=== PATIENT | female | born 1970 | race Caucasian/White ===

== ENCOUNTER 2018-05-16 09:53 | Inpatient (IN) | payer OTHER ==
[2018-05-16 10:22] VITALS: BMI 31.6
--- NOTE | 2018-05-16 10:27 | HP ---
CIWA Score Nausea/Vomitin Muscle Tremors: 2 Anxiety: 2 Agitation: 2 Paroxysmal Sweats: 1-Minimal Palms Moist Orientation: 0-Oriented Tacttile Disturbances: 1-Very Mild Itch/Numbness Auditory Disturbances: 1-Very Mild Visual Disturbances: 0-None Headache: 2-Mild CIWA-Ar Total Score: 13 - Admission Criteria OASAS Guidelines: Admission for Medically Managed Detox: Requires at least one of the followin. CIWA greater than 12 2. Seizures within the past 24 hours 3. Delirium tremens within the past 24 hours 4. Hallucinations within the past 24 hours 5. Acute intervention needed for co occurring medical disorder 6. Acute intervention needed for co occurring psychiatric disorder 7. Severe withdrawal that cannot be handled at a lower level of care (continued vomiting, continued diarrhea, abnormal vital signs) requiring intravenous medication and/or fluids 8. Patient presents the following: CIWA greater than 12 Admission Criteria Met: Admission criteria met Admission ROS [facility] - HPI Chief Complaint: i need help to stop using xanax and cocaine Allergies/Adverse Reactions: Allergies Allergy/AdvReac Type Severity Reaction Status Date / Time No Known Drug Allergies Allergy Verified 05/16/18 10:12 History of Present Illness: this 47 years old female with xanax and cocaine dependence,seeking detox, withdrawal symptom,multiple admissions in the past, last detox 02/08/15 to 02/12/15 but keep relapsing history of asthma ,anemia mmtp 100 mgs/day ,last medicated today low back pain hypercholesterolemia,no medication longest period of sobriety 11 months Exam Limitations: No Limitations - Ebola screening Have you traveled outside of the country in the last 21 days: No Have you had contact with anyone from an Ebola affected area: No - Review of Systems Constitutional: Loss of Appetite, Malaise, Night Sweats, Changes in sleep, Weakness, Unintentional Wgt. Loss EENT: reports: Nose Congestion Respiratory: reports: No Symptoms reported, Other (history of asthma) Cardiac: reports: No Symptoms Reported GI: reports: Nausea, Poor Appetite, Abdominal cramping : reports: No Symptoms Reported Musculoskeletal: reports: Back Pain, Joint Pain, Muscle Pain Integumentary: reports: Dryness Neuro: reports: Headache, Tremors Endocrine: reports: No Symptoms Reported Hematology: reports: No Symptoms Reported, See HPI, Anemia Psychiatric: reports: No Sypmtoms Reported, Judgement Intact, Mood/Affect Appropiate, Orientated x3, Depressed Other Systems: Reviewed and Negative Patient History - Patient Medical History Hx Anemia: Yes (ON IRON SUPPLEMENT) Hx Asthma: Yes (ON ALBUTEROL INHALER) Hx Chronic Obstructive Pulmonary Disease (COPD): No Hx Cancer: No Hx Cardiac Disorders: No Hx Congestive Heart Failure: No Hx Hypertension: No Hx Hypercholesterolemia: No Hx Pacemaker: No HX Cerebrovascular Accident: No Hx Seizures: Yes (WITHDRAWAL SEIZURE in 2014) Hx Dementia: No Hx Diabetes: No Hx Gastrointestinal Disorders: No Hx Liver Disease: No Hx Genitourinary Disorders: No Hx Sexually Transmitted Disorders: No Hx Renal Disease (ESRD): No Hx Thyroid Disease: No Hx Human Immunodeficiency Virus (HIV): No (last 11/03) Hx Hepatitis C: No Hx Depression: Yes (anxiety and depression) Hx Suicide Attempt: No Hx Bipolar Disorder: No Hx Schizophrenia: No Other Medical History: no suicidal,no homicidal - Patient Surgical History Past Surgical History: Yes Hx Neurologic Surgery: No Hx Cataract Extraction: No Hx Cardiac Surgery: No Hx Lung Surgery: No Hx Breast Surgery: No Hx Breast Biopsy: No Hx Abdominal Surgery: No Hx Appendectomy: No Hx Cholecystectomy: No Hx Genitourinary Surgery: No Hx Section: No Hx Orthopedic Surgery: Yes (LOWER BACK LASER SX IN 1989) Other Surgical History: tubial ligation in 1995 Anesthesia Reaction: No - PPD History Previous Implant?: Yes Documented Results: Negative w/o proof Date: 06/24/14 Results: 0MM PPD to be Administered?: Yes - Reproductive History Patient is a Female of Child Bearing Age (11 -55 yrs old): Yes Last Menstrual Period: 05/02/18 Patient : No - Smoking Cessation Smoking history: Never smoked Have you smoked in the past 12 months: No Aproximately how many cigarettes per day: 0 Cigars Per Day: 0 Hx Chewing Tobacco Use: No - Substance & Tx. History Hx Alcohol Use: No Hx Substance Use: Yes Substance Use Type: Cocaine, Tranquilizers Hx Substance Use Treatment: Yes ([facility] ) - Substances Abused Alprazolam (Xanax) Route: Oral Frequency: Daily Amount used: 16-20mg Age of first use: 29 Date of Last Use: 05/16/18 Cocaine Route: Inhalation Frequency: 1-2 times per week Amount used: $20 Age of first use: 17 Date of Last Use: 05/15/18 Family Disease History - Family Disease History Family Disease History: Other: Father (DRUG, OF AN OD), Mother (DRUG, cerebral aneurysm) Admission Physical Exam [facility] - Vital Signs Vital Signs: Vital Signs Temperature 97.6 F 05/16/18 10:20 Pulse Rate 62 05/16/18 10:20 Respiratory Rate 17 05/16/18 10:20 Blood Pressure 109/63 05/16/18 10:20 O2 Sat by Pulse Oximetry (%) - Physical General Appearance: Yes: Moderate Distress, Tremorous, Irritable, Sweating, Anxious HEENTM: Yes: Normal ENT Inspection, [place], Pharynx Normal Respiratory: Yes: Lungs Clear, Normal Breath Sounds, No Respiratory Distress, Other (history of asthma) Neck: Yes: Within Normal Limits, Supple, Trachea in good position Breast: Yes: Breast Exam Deferred Cardiology: Yes: Within Normal Limits, Regular Rhythm, Regular Rate, S1, S2 Abdominal: Yes: Within Normal Limits, Normal Bowel Sounds, Non Tender, Flat, Soft Genitourinary: Yes: Within Normal Limits Back: Yes: Muscle Spasm Musculoskeletal: Yes: Back pain, Muscle Pain Extremities: Yes: Within Normal Limits, Normal Range of Motion, Tremors Neurological: Yes: 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 intact, Fully Oriented, Alert, Motor Strength 5/5 Integumentary: Yes: Dry Lymphatic: Yes: Within Normal Limits - Diagnostic (1) Uncomplicated sedative, hypnotic or anxiolytic withdrawal Current Visit: No Status: Acute (2) Anemia Current Visit: No Status: Chronic (3) Asthma Current Visit: No Status: Chronic (4) Cocaine dependence Current Visit: No Status: Chronic (5) Methadone maintenance therapy patient Current Visit: No Status: Chronic (6) Opioid dependence on agonist therapy Current Visit: No Status: Chronic (7) Seizure Current Visit: No Status: Chronic Cleared for Admission S - Detox or Rehab [facility] Level of Care: Medically Managed Detox Regimen/Protocol: Valium S Breath Alcohol Content Breath Alcohol Content: 0 Inpatient Rehab Admission - Rehab Decision to Admit Inpatient rehab admission?: No
[2018-05-16] MEDS ORDERED: ACETAMINOPHEN 325 MG TABLET (FP) PO PRN (10:38)
[2018-05-16] MEDS ORDERED: MENTHOL/PHENOL 1 EACH UD MM PRN (10:38)
[2018-05-16] MEDS ORDERED: guaiFENesin/D-METHORPHAN HB 10 ML UNIT-DOSE CUPS PO PRN (10:38)
[2018-05-16] MEDS ORDERED: LOPERAMIDE HCL 2 MG CAPSULE PO PRN (10:38)
[2018-05-16] MEDS ORDERED: MAGNESIUM HYDROX 2400MG/30ML ORAL SUSPENSION 30 ML CUP PO PRN (10:38)
[2018-05-16] MEDS ORDERED: MAGNESIUM CITRATE 300 ML BOTTLE PO PRN (10:38)
[2018-05-16] MEDS ORDERED: MAG HYDROX/AL HYDROX/SIMETH 30 ML UNIT-DOSE CUP PO PRN (10:38)
[2018-05-16] MEDS ORDERED: P-EPHED 60MG/TRIPROLIDI 2.5MG TABLET PO PRN (10:38)
[2018-05-16] MEDS ORDERED: hydrOXYzine PAMOATE 25 MG CAPSULE (FP) PO PRN (10:38)
[2018-05-16] MEDS ORDERED: ALBUTEROL SO4 8 GM HFA INHALER IH PRN (10:41)
[2018-05-16] MEDS: FERROUS SO4 325 MG TABLET (FP) PO SCH ×2 (13:15→22:37)
[2018-05-16] MEDS: diazePAM 5 MG TABLET PO SCH ×2 (13:15→22:37)
[2018-05-16] MEDS: THIAMINE HCL 100 MG TABLET (FP) PO SCH (22:37)
[2018-05-16] MEDS: MELATONIN 5 MG TABLETS PO PRN (22:37)
[2018-05-17] MEDS ORDERED: METHADONE HCL 40 MG DISPERSABLE TABLET ONE (04:29)
[2018-05-17] MEDS ORDERED: METHADONE HCL 10 MG TABLET ONE (04:29)
[2018-05-17] MEDS: METHADONE 80 MG, METHADONE 20 MG PO SCH (05:33)
[2018-05-17] MEDS: FERROUS SO4 325 MG TABLET (FP) PO SCH ×3 (05:34→22:12)
[2018-05-17] MEDS: diazePAM 5 MG TABLET PO SCH ×3 (05:34→22:12)
[2018-05-17] MEDS ORDERED: METHADONE HCL 10 MG TABLET PO SCH (06:00)
[2018-05-17] MEDS: PRENATAL VITAMINS W/ FOLIC ACID TABLET (FP) PO SCH (10:47)
[2018-05-17 10:50] LABS: HEMATOCRIT 35.9 % (32.4-45.2); HEMOGLOBIN 11.9 GM/dL (10.7-15.3); MCH 29.4 pg (25.7-33.7); MEAN PLT VOLUME 10.1 fl (7.5-11.1); PLATELET COUNT 247 K/MM3 (134-434); RBC 4.04 M/mm3 (3.60-5.2); RDW 20.3 % (11.6-15.6); WHITE BLOOD COUNT 4.7 K/mm3 (4.0-10.0)
[2018-05-17 11:00] LABS: ALBUMIN 3.3 g/dl (3.4-5.0); ALK PHOS 62 U/L (45-117); ANION GAP 5 MMOL/L (8-16); BILIRUBIN,TOTAL 0.4 mg/dL (0.2-1); BLOOD UREA NITROGEN 10 mg/dL (7-18); CALCIUM 8.4 mg/dL (8.5-10.1); CHLORIDE 105 mmol/L (98-107); CO2 26 mmol/L (21-32); CREATININE 0.9 mg/dL (0.55-1.3); GLUCOSE,RANDOM 102 mg/dL (74-106); POTASSIUM 4.4 mmol/L (3.5-5.1); SGOT/AST 10 U/L (15-37); SGPT/ALT 16 U/L (13-61); SODIUM 136 mmol/L (136-145); TOT PROT 6.3 g/dl (6.4-8.2)
--- NOTE | 2018-05-17 12:02 | PN ---
S CIWA - CIWA Score Nausea/Vomitin-No Nausea/No Vomiting Muscle Tremors: 3 Anxiety: 3 Agitation: 3 Paroxysmal Sweats: 3 Orientation: 0-Oriented Tacttile Disturbances: 0-None Auditory Disturbances: 0-None Visual Disturbances: 0-None Headache: 0-None Present CIWA-Ar Total Score: 12 S Progress Note (SOAP) Subjective: sweats shakes interrupted sleep body aches Objective: 05/17/18 12:01 Vital Signs Temperature 99.1 F 05/17/18 09:31 Pulse Rate 73 05/17/18 09:31 Respiratory Rate 18 05/17/18 09:31 Blood Pressure 107/73 05/17/18 09:31 O2 Sat by Pulse Oximetry (%) Laboratory Tests 05/17/18 05/17/18 06:30 06:30 WBC 4.7 RBC 4.04 Hgb 11.9 Hct 35.9 MCV 89.0 MCH 29.4 D MCHC 33.0 RDW 20.3 H Plt Count 247 D MPV 10.1 Sodium 136 Potassium 4.4 Chloride 105 Carbon Dioxide 26 Anion Gap 5 L BUN 10 Creatinine 0.9 Creat Clearance w eGFR > 60 Random Glucose 102 Calcium 8.4 L Total Bilirubin 0.4 AST 10 L ALT 16 Alkaline Phosphatase 62 Total Protein 6.3 L Albumin 3.3 L aaox3 ambulating no acute distress Assessment: 05/17/18 12:02 withdrawal sx Plan: continue detox increase fluids
[2018-05-17] MEDS: IBUPROFEN 400 MG TABLET (FP) PO PRN (19:12)
[2018-05-17] MEDS: THIAMINE HCL 100 MG TABLET (FP) PO SCH (22:12)
[2018-05-18] MEDS ORDERED: TRIMETHOBENZAMIDE HCL 200MG/2ML INJ IM ONE (01:27)
--- NOTE | 2018-05-18 01:34 | PN ---
[facility] Progress Note Note: As per Nurse Ms. Anup Ramirez, patient complained of nausea and vomiting Vital Signs Temperature 98.2 F 05/17/18 17:27 Pulse Rate 60 05/17/18 17:27 Respiratory Rate 18 05/18/18 00:30 Blood Pressure 111/67 05/17/18 17:27 O2 Sat by Pulse Oximetry (%) Action: Tigan 200mg intramuscular ordered
[2018-05-18] MEDS ORDERED: METHADONE HCL 10 MG TABLET ONE (04:53)
[2018-05-18] MEDS ORDERED: METHADONE HCL 40 MG DISPERSABLE TABLET ONE (04:53)
[2018-05-18] MEDS: METHADONE 80 MG, METHADONE 20 MG PO SCH (06:28)
[2018-05-18] MEDS: FERROUS SO4 325 MG TABLET (FP) PO SCH ×3 (06:30→22:09)
[2018-05-18] MEDS ORDERED: diazePAM 5 MG TABLET PO ONE (10:00)
[2018-05-18] MEDS: PRENATAL VITAMINS W/ FOLIC ACID TABLET (FP) PO SCH (10:08)
[2018-05-18] MEDS: diazePAM 5 MG TABLET PO SCH ×2 (10:08→22:09)
[2018-05-18] MEDS: diazePAM 5 MG TABLET PO PRN (14:01)
--- NOTE | 2018-05-18 15:30 | PN ---
S CIWA - CIWA Score Nausea/Vomitin Muscle Tremors: 3 Anxiety: 3 Agitation: 2 Paroxysmal Sweats: 3 Orientation: 0-Oriented Tacttile Disturbances: 0-None Auditory Disturbances: 0-None Visual Disturbances: 0-None Headache: 0-None Present CIWA-Ar Total Score: 13 [facility] Progress Note (SOAP) Subjective: tired nausea shakes Objective: 05/18/18 15:29 A & O x 3, In bed, skin flushed Vital Signs Temperature 100.4 F H 05/18/18 14:00 Pulse Rate 70 05/18/18 14:00 Respiratory Rate 16 05/18/18 14:00 Blood Pressure 128/70 05/18/18 14:00 O2 Sat by Pulse Oximetry (%) T- 100.4F Assessment: 05/18/18 15:30 withdrawal sx fever - maybe as withdrawal sx Plan: continue detox Tylenol for fever continue increase hydration UA ordered
[2018-05-18] MEDS: IBUPROFEN 400 MG TABLET (FP) PO PRN (18:53)
[2018-05-18] MEDS: THIAMINE HCL 100 MG TABLET (FP) PO SCH (22:09)
[2018-05-18] MEDS: MELATONIN 5 MG TABLETS PO PRN (22:09)
[2018-05-19] MEDS ORDERED: METHADONE HCL 40 MG DISPERSABLE TABLET ONE (04:38)
[2018-05-19] MEDS ORDERED: METHADONE HCL 10 MG TABLET ONE (04:39)
[2018-05-19] MEDS: METHADONE 80 MG, METHADONE 20 MG PO SCH (05:31)
[2018-05-19] MEDS: FERROUS SO4 325 MG TABLET (FP) PO SCH ×3 (05:32→22:00)
[2018-05-19] MEDS: diazePAM 5 MG TABLET PO PRN (07:46)
[2018-05-19] MEDS: PRENATAL VITAMINS W/ FOLIC ACID TABLET (FP) PO SCH (09:20)
[2018-05-19] MEDS: diazePAM 5 MG TABLET PO SCH ×2 (09:20→22:00)
[2018-05-19] MEDS: IBUPROFEN 400 MG TABLET (FP) PO PRN (14:16)
--- NOTE | 2018-05-19 15:40 | PN ---
[facility] Progress Note (SOAP) Subjective: Sweating, chills Objective: 05/19/18 15:39 Last Vital Signs Temp Pulse Resp BP Pulse Ox 98.1 F 84 18 115/66 05/19/18 10:00 05/19/18 10:00 05/19/18 10:00 05/19/18 10:00 Laboratory Tests 05/16/18 05/17/18 05/17/18 12:00 06:30 06:30 WBC 4.7 RBC 4.04 Hgb 11.9 Hct 35.9 MCV 89.0 MCH 29.4 D MCHC 33.0 RDW 20.3 H Plt Count 247 D MPV 10.1 Sodium 136 Potassium 4.4 Chloride 105 Carbon Dioxide 26 Anion Gap 5 L BUN 10 Creatinine 0.9 Creat Clearance w eGFR > 60 Random Glucose 102 Calcium 8.4 L Total Bilirubin 0.4 AST 10 L ALT 16 Alkaline Phosphatase 62 Total Protein 6.3 L Albumin 3.3 L Urine Color Cancelled Urine Appearance Cancelled Urine pH Cancelled Ur Specific [place] Cancelled Urine Protein Cancelled Urine Glucose (UA) Cancelled Urine Ketones Cancelled Urine Blood Cancelled Urine Nitrite Cancelled Urine Bilirubin Cancelled Urine Urobilinogen Cancelled Ur Leukocyte Esterase Cancelled RPR Titer 05/17/18 06:30 WBC RBC Hgb Hct MCV MCH MCHC RDW Plt Count MPV Sodium Potassium Chloride Carbon Dioxide Anion Gap BUN Creatinine Creat Clearance w eGFR Random Glucose Calcium Total Bilirubin AST ALT Alkaline Phosphatase Total Protein Albumin Urine Color Urine Appearance Urine pH Ur Specific [place] Urine Protein Urine Glucose (UA) Urine Ketones Urine Blood Urine Nitrite Urine Bilirubin Urine Urobilinogen Ur Leukocyte Esterase RPR Titer Nonreactive Labs reviewed Assessment: 05/19/18 15:39 Withdrawal symptoms Plan: Continue detox Encouraged PO water hydration
[2018-05-19] MEDS: MELATONIN 5 MG TABLETS PO PRN (22:00)
[2018-05-19] MEDS: THIAMINE HCL 100 MG TABLET (FP) PO SCH (22:00)
[2018-05-20] MEDS ORDERED: METHADONE HCL 40 MG DISPERSABLE TABLET ONE (02:47)
[2018-05-20] MEDS ORDERED: METHADONE HCL 10 MG TABLET ONE (02:48)
[2018-05-20] MEDS: METHADONE 80 MG, METHADONE 20 MG PO SCH (05:48)
[2018-05-20] MEDS: FERROUS SO4 325 MG TABLET (FP) PO SCH (05:49)
[2018-05-20] MEDS: PRENATAL VITAMINS W/ FOLIC ACID TABLET (FP) PO SCH (09:25)
[2018-05-20] MEDS: IBUPROFEN 400 MG TABLET (FP) PO PRN (09:25)
[2018-05-20 09:34] VITALS: BP 103/65; PULSE 85; TEMP 99.1
--- NOTE | 2018-05-20 09:36 | DS ---
[facility] Detox Discharge Summary Admission Date: 05/16/18 Discharge Date: 05/20/18 - History Present History: Alcohol Dependence, Cocaine Dependence, Opioid Dependence, Sedative Dependence - Physical Exam Results Vital Signs: Vital Signs Temperature 99.7 F H 05/20/18 06:54 Pulse Rate 77 05/20/18 06:54 Respiratory Rate 18 05/20/18 06:54 Blood Pressure 109/61 05/20/18 06:54 O2 Sat by Pulse Oximetry (%) - Treatment Hospital Course: Detox Protocol Followed, Detoxed Safely, Responded well, Discharged Condition Good, Rehab Referral Accepted - Medication Discharge Medications: Ambulatory Orders Albuterol Sulfate Inhaler - [Ventolin HFA Inhaler -] 2 inh PO Q4H PRN #1 inh Ferrous Sulfate [Feosol] 325 mg PO TID #90 ud 11/03/14 - Diagnosis (1) Uncomplicated sedative, hypnotic or anxiolytic withdrawal Current Visit: Yes Status: Chronic (2) Alcohol dependence with uncomplicated withdrawal Current Visit: Yes Status: Chronic (3) Anemia Current Visit: Yes Status: Chronic Qualifiers: Anemia type: unspecified type Qualified Code(s): D64.9 - Anemia, unspecified (4) Anxiety and depression Current Visit: No Status: Chronic (5) Asthma Current Visit: Yes Status: Chronic Qualifiers: Asthma severity: mild Asthma complication type: unspecified (6) Cocaine dependence Current Visit: Yes Status: Chronic Qualifiers: Substance use status: uncomplicated Qualified Code(s): F14.20 - Cocaine dependence, uncomplicated (7) MDD (major depressive disorder) Current Visit: No Status: Chronic - AMA Did Patient Leave Against Medical Advice: No (referred to [facility])
[2018-05-20] MEDS ORDERED: diazePAM 5 MG TABLET PO ONE (10:00)
== END 2018-05-20 12:16 | disposition other institution (70) | DRG 773 ==
LOC: YASAS 09:53 → Y6N 10:42
PROVIDERS: ADMIT Surgery; ATTEND Surgery
PROC: HZ2ZZZZ Detoxification Services for Substance Abuse Treatment (ICD-10-PCS; principal; 2018-05-16)
DX: F10.230 Alcohol dependence with withdrawal, uncomplicated (principal); F13.230 Sedative, hypnotic or anxiolytic dependence with withdrawal, uncomplicated; F14.20 Cocaine dependence, uncomplicated; F11.20 Opioid dependence, uncomplicated; F33.9 Major depressive disorder, recurrent, unspecified; F41.8 Other specified anxiety disorders; D64.9 Anemia, unspecified; J45.909 Unspecified asthma, uncomplicated; M54.5 Low back pain; E78.00 Pure hypercholesterolemia, unspecified; Z86.69 Personal history of other diseases of the nervous system and sense organs
CPT/HCPCS: 36415; 80053; 81003; 85027; 86593

== ENCOUNTER 2018-05-20 12:13 | Inpatient (IN) | payer OTHER ==
[2018-05-20 13:04] VITALS: BMI 30.8
[2018-05-20] MEDS ORDERED: MAGNESIUM HYDROX 2400MG/30ML ORAL SUSPENSION 30 ML CUP PO PRN (14:12)
[2018-05-20] MEDS ORDERED: MENTHOL/PHENOL 1 EACH UD MM PRN (14:12)
[2018-05-20] MEDS ORDERED: LOPERAMIDE HCL 2 MG CAPSULE PO PRN (14:12)
[2018-05-20] MEDS ORDERED: MAG HYDROX/AL HYDROX/SIMETH 30 ML UNIT-DOSE CUP PO PRN (14:12)
[2018-05-20] MEDS ORDERED: NICOTINE POLACRILEX 4 MG GUM BUC PRN (14:12)
[2018-05-20] MEDS ORDERED: P-EPHED 60MG/TRIPROLIDI 2.5MG TABLET PO PRN (14:12)
[2018-05-20] MEDS ORDERED: guaiFENesin/D-METHORPHAN HB 10 ML UNIT-DOSE CUPS PO PRN (14:12)
--- NOTE | 2018-05-20 14:12 | HP ---
[facility] Rehab Assess/Revision - Admission History Admitted to Rehab from: [facility] [address] [place] - Vital signs Vital Signs: Vital Signs Period Temp Pulse Resp BP Sys/Light Pulse Ox Last 24 Hr 97.8 F-97.8 F 80-80 18-18 126-126/77-77 - Findings Detox History & Physical reviewed: Yes Concur with findings: Yes Inpatient Rehab Admission - Rehab Decision to Admit Inpatient rehab admission?: Yes - Initial Determination Are CD services needed?: Yes Free of communicable disease: Yes Not in need of hospitalization: Yes - Rehab Admission Criteria Previous failed treatment: Yes Poor recovery environment: Yes Comorbidities: Yes Lacks judgement: Yes Patient is meeting Inpatient Rehab admission criteria:: Yes
[2018-05-20] MEDS ORDERED: ALBUTEROL SO4 8 GM HFA INHALER IH PRN (14:13)
[2018-05-20] MEDS: FERROUS SO4 325 MG TABLET (FP) PO SCH (17:45)
[2018-05-20] MEDS: THIAMINE HCL 100 MG TABLET (FP) PO SCH (21:37)
[2018-05-21] MEDS ORDERED: METHADONE HCL 10 MG TABLET ONE (05:51)
[2018-05-21] MEDS ORDERED: METHADONE HCL 40 MG DISPERSABLE TABLET ONE (05:51)
[2018-05-21] MEDS ORDERED: METHADONE HCL 10 MG TABLET PO SCH (06:00)
[2018-05-21] MEDS: METHADONE 80 MG, METHADONE 20 MG PO SCH (06:20)
[2018-05-21] MEDS: FERROUS SO4 325 MG TABLET (FP) PO SCH ×3 (07:21→17:45)
[2018-05-21] MEDS ORDERED: NICOTINE 21 MG/24 HOURS TOPICAL PATCH TD SCH (10:00)
[2018-05-21] MEDS: PRENATAL VITAMINS W/ FOLIC ACID TABLET (FP) PO SCH (10:06)
[2018-05-21] MEDS: MAGNESIUM CITRATE 300 ML BOTTLE PO PRN (10:07)
[2018-05-21] MEDS: IBUPROFEN 400 MG TABLET (FP) PO PRN ×2 (10:11→17:46)
--- NOTE | 2018-05-21 12:43 | PN ---
[facility] Progress Note (SOAP) Subjective: c/o of constipation for 1 week. Also vomited 2 days ago. Also c/o pain right lower side; on methadone. Unclear as to whether or not the patient has taken imodium. Has taken 1 dose of citrus of magnesia, 2nd dose is due. Objective: 05/21/18 12:39 abdomen rounded, non-tender to palpation, soft, positive bowel sounds all 4 quadrant. Able to eat. afebrile Vital Signs - 24 hr 05/20/18 05/21/18 05/21/18 13:03 00:30 03:30 Temperature 97.8 F Pulse Rate 80 Respiratory 18 18 18 Rate Blood Pressure 126/77 05/21/18 06:52 Temperature 97.8 F Pulse Rate 80 Respiratory 16 Rate Blood Pressure 114/72 05/21/18 12:43 05/21/18 12:46 Assessment: 05/21/18 12:44 constipation Plan: Encourage fluids. increase ambulation, ordered colace. Advised patient to take second dose of citrate of magnesia. Imodium discontinued.
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
[2018-05-21] MEDS: THIAMINE HCL 100 MG TABLET (FP) PO SCH (22:10)
[2018-05-21] MEDS: MELATONIN 5 MG TABLETS PO PRN (22:10)
[2018-05-21] MEDS: DOCUSATE SODIUM 100 MG CAPSULE (FP) PO SCH (22:10)
[2018-05-21] MEDS: hydrOXYzine PAMOATE 50 MG CAPSULE (FP) PO PRN (22:10)
[2018-05-22] MEDS ORDERED: METHADONE HCL 10 MG TABLET ONE (05:19)
[2018-05-22] MEDS ORDERED: METHADONE HCL 40 MG DISPERSABLE TABLET ONE (05:19)
[2018-05-22] MEDS: METHADONE 80 MG, METHADONE 20 MG PO SCH (06:46)
[2018-05-22] MEDS: FERROUS SO4 325 MG TABLET (FP) PO SCH ×3 (09:00→17:35)
[2018-05-22] MEDS: IBUPROFEN 400 MG TABLET (FP) PO PRN ×2 (10:03→15:42)
[2018-05-22] MEDS: PRENATAL VITAMINS W/ FOLIC ACID TABLET (FP) PO SCH (10:03)
[2018-05-22] MEDS ORDERED: PT OWN MED DRAWER 7, Y5N ONE (10:31)
[2018-05-22] MEDS: THIAMINE HCL 100 MG TABLET (FP) PO SCH (21:19)
[2018-05-22] MEDS: DOCUSATE SODIUM 100 MG CAPSULE (FP) PO SCH (21:20)
[2018-05-22] MEDS: MELATONIN 5 MG TABLETS PO PRN (21:21)
[2018-05-23] MEDS ORDERED: METHADONE HCL 10 MG TABLET ONE (02:39)
[2018-05-23] MEDS ORDERED: METHADONE HCL 40 MG DISPERSABLE TABLET ONE (02:40)
[2018-05-23] MEDS: ACETAMINOPHEN 325 MG TABLET (FP) PO PRN (06:34)
[2018-05-23] MEDS: METHADONE 80 MG, METHADONE 20 MG PO SCH (06:35)
[2018-05-23] MEDS: PRENATAL VITAMINS W/ FOLIC ACID TABLET (FP) PO SCH (10:16)
[2018-05-23] MEDS: FERROUS SO4 325 MG TABLET (FP) PO SCH (10:16)
[2018-05-23] MEDS: IBUPROFEN 400 MG TABLET (FP) PO PRN ×2 (10:17→18:48)
--- NOTE | 2018-05-23 10:37 | PN ---
[facility] Progress Note (SOAP) Subjective: Patient c/o right lower quadrant pain. Had previous c/o pain 2 days ago, also reporting constipation at that time. Was given citrus of magnesia and started on colace. Stated she had 1 loose bowel movement after the magnesia that was greenish in color. Reports she is able to ate, but appetite is decreased. Had a temperature of 100.1 at 7am, temperature at 9:10 AM as 98.5. Denies nausea and vomiting. Objective: 05/23/18 10:35 Abdomen soft, non-tender, non-distended, no pain on palpation. Positive bowel sounds in all 4 quadrants. Skin color consistent, no areas of eccyhmosis or rashes. 05/23/18 12:38 Vital Signs Period Temp Pulse Resp BP Sys/Light Pulse Ox Last 24 Hr 97.8 F-100.1 F 58-132 - 101-112/57-81 Last Vital Signs Temp Pulse Resp BP Pulse Ox 97.8 F 58 L 18 101/66 05/23/18 12:00 05/23/18 12:00 05/23/18 12:00 05/23/18 12:00 Assessment: 05/23/18 10:36 unspecified Abdominal pain Plan: Continue to monitor. Requested that nurses take vital signs again at 12 noon and 2pm. Hgb/Hct are normal. Ferrous sulfate discontinued.
[2018-05-23] MEDS: THIAMINE HCL 100 MG TABLET (FP) PO SCH (21:18)
[2018-05-23] MEDS: MELATONIN 5 MG TABLETS PO PRN (21:18)
[2018-05-23] MEDS: DOCUSATE SODIUM 100 MG CAPSULE (FP) PO SCH (21:18)
[2018-05-24] MEDS ORDERED: METHADONE HCL 10 MG TABLET ONE (05:49)
[2018-05-24] MEDS ORDERED: METHADONE HCL 40 MG DISPERSABLE TABLET ONE (05:49)
[2018-05-24] MEDS: METHADONE 80 MG, METHADONE 20 MG PO SCH (06:35)
--- NOTE | 2018-05-24 07:28 | PN ---
[facility] Progress Note Note: Patient complained abdominal pain radiating to the flank area. Temperature 101.7F. Vital Signs Temperature 101.7 F H 05/24/18 07:00 Pulse Rate 96 H 05/24/18 07:00 Respiratory Rate 18 05/24/18 07:00 Blood Pressure 109/71 05/24/18 07:00 O2 Sat by Pulse Oximetry (%) Action: Urinalysis ordered CBC ordered Tylenol 325mg tablet 2 tablet oral after blood is drawn
[2018-05-24] MEDS: PRENATAL VITAMINS W/ FOLIC ACID TABLET (FP) PO SCH (09:08)
[2018-05-24 10:46] LABS: URINE APPEARANCE CLEAR; URINE BILIRUBIN NEGATIVE (<2.0 mg/dL); URINE COLOR YELLOW; URINE GLUCOSE (UA) NEGATIVE (NEGATIVE); URINE KETONE NEGATIVE (NEGATIVE); URINE LEUK ESTERASE TRACE (NEGATIVE); URINE NITRITE NEGATIVE (NEGATIVE); URINE PROTEIN NEGATIVE (NEGATIVE); URINE UROBILINOGEN NEGATIVE mg/dL (0.2-1.0)
[2018-05-24 11:00] LABS: HEMATOCRIT 34.1 % (32.4-45.2); HEMOGLOBIN 11.9 GM/dL (10.7-15.3); MCH 31.2 pg (25.7-33.7); MCHC 34.9 g/dl (32.0-36.0); MEAN CELL VOLUME 89.4 fl (80-96); MEAN PLT VOLUME 9.2 fl (7.5-11.1); PLATELET COUNT 326 K/MM3 (134-434); RBC 3.82 M/mm3 (3.60-5.2); RDW 17.1 % (11.6-15.6); WHITE BLOOD COUNT 11.9 K/mm3 (4.0-10.0)
[2018-05-24 11:04] LABS: EPI CELLS RARE /HPF (FEW)
--- NOTE | 2018-05-24 12:51 | PN ---
[facility] Progress Note Note: 47 Y/O FEMALE PATIENT IN REHAB C/O FEVER OF 24 - 48 HRS WITH RLQ ABDOMINAL RADIATING TO THE BACK. REPORTS IT COMES AND GOES AND NOW LOCATED ON THE EPIGASTRIC AREA. PT DENIES NAUSEA, VOMITING OR DIARRHEA TODAY BUT A TEMP OF 101.7 THIS MORNING WITH A REPEAT OF 99.2 AFTER MEDICATION. PT WAS MONITORED YESTERDAY FOR SAME COMPLAINT WITH LOW GRADE TEMPERATURES. Home Medications Medication Instructions Recorded Albuterol Sulfate Inhaler - 2 inh PO Q4H PRN #1 inh 11/03/14 [Ventolin HFA Inhaler -] Ferrous Sulfate [Feosol] 325 mg PO TID #90 ud 11/03/14 Vital Signs (72 hours) 05/22/18 05/22/18 05/22/18 00:30 03:30 07:10 Temperature 97.3 F L Pulse Rate 66 Respiratory 18 18 18 Rate Blood Pressure 113/76 05/23/18 05/23/18 05/23/18 00:30 03:30 07:02 Temperature 100.1 F H Pulse Rate 132 H Respiratory 18 18 18 Rate Blood Pressure 112/81 05/23/18 05/23/18 05/24/18 09:10 12:00 00:30 Temperature 98.5 F 97.8 F Pulse Rate 68 58 L Respiratory 19 18 16 Rate Blood Pressure 105/57 L 101/66 05/24/18 05/24/18 05/24/18 03:30 07:00 09:11 Temperature 101.7 F H 99.2 F Pulse Rate 96 H 76 Respiratory 16 18 18 Rate Blood Pressure 109/71 104/69 Laboratory Tests 05/21/18 05/24/18 05/24/18 06:00 07:00 08:00 WBC 11.9 H RBC 3.82 Hgb 11.9 Hct 34.1 MCV 89.4 MCH 31.2 MCHC 34.9 RDW 17.1 H Plt Count 326 D MPV 9.2 Urine Color Yellow Urine Appearance Clear Urine pH 7.0 Ur Specific [place] 1.016 Urine Protein Negative Urine Glucose (UA) Negative Urine Ketones Negative Urine Blood 2+ H Urine Nitrite Negative Urine Bilirubin Negative Urine Urobilinogen Negative Ur Leukocyte Esterase Trace Urine WBC (Auto) 2 Urine RBC (Auto) 3 Ur Epithelial Cells Rare HIV 1&2 Antibody Screen Negative HIV P24 Antigen Negative Active Medications Generic Name Dose Route Start Last Admin Trade Name Freq PRN Reason Stop Dose Admin Acetaminophen 650 mg 05/20/18 14:12 05/23/18 06:34 Tylenol - PO 650 mg Q4H PRN Administration FEVER Al Hydroxide/Mg Hydroxide 30 ml 05/20/18 14:12 Mylanta Oral Suspension - PO Q6H PRN DYSPEPSIA Albuterol Sulfate 2 puff 05/20/18 14:13 Ventolin Hfa Inhaler - IH Q4H PRN ASTHMA Docusate Sodium 300 mg 05/21/18 22:00 05/23/18 21:18 Colace - PO 05/27/18 22:01 300 mg HS CASPER Administration Eucalyptus/Menthol/Phenol/Sorbitol 1 each 05/20/18 14:12 Cepastat Lozenge - MM Q4H PRN SORE THROAT Guaifenesin 10 ml 05/20/18 14:12 Robitussin Dm - PO Q6H PRN COUGH Hydroxyzine Pamoate 50 mg 05/20/18 14:12 05/21/18 22:10 Vistaril - PO 50 mg Q4H PRN Administration AGITATION Ibuprofen 400 mg 05/20/18 14:12 05/23/18 18:48 Motrin - PO 400 mg Q6H PRN Administration Pain Level 4-6 Magnesium Citrate 300 ml 05/20/18 14:12 05/21/18 10:07 Citroma - PO 300 ml Q48H PRN Administration CONSTIPATION Magnesium Hydroxide 30 ml 05/20/18 14:12 05/20/18 15:44 Milk Of Magnesia - PO 30 ml DAILY PRN Administration CONSTIPATION Melatonin 5 mg 05/20/18 22:00 05/23/18 21:18 Melatonin PO 5 mg HS PRN Administration INSOMNIA Methadone HCl 80 mg/ Methadone 100 mg 05/21/18 06:00 05/24/18 06:35 HCl 20 mg PO 100 mg DAILY@0600 CASPER Administration Multivit/Folic Acid/Iron 1 tab 05/21/18 10:00 05/24/18 09:08 Vitamins (Sjr) - PO 1 tab DAILY CASPER Administration Pseudoephedrine/Triprolidine 1 combo 05/20/18 14:12 Actifed - PO TID PRN NASAL CONGESTION Thiamine HCl 100 mg 05/20/18 22:00 05/23/18 21:18 Vitamin B1 - PO 100 mg HS CASPER Administration CHANGE IN WBC FROM 4.04 TO 11.9 UA: 2+ BLOOD; TRACE LEUK JUANJOSE UC PENDING CARDIAC: S1 S2, RRR LUNGS:CLEAR TO AUSCULTATE, NO WHEEZING OR RHONCHI ABDOMEN: SOFT, (+) BS ALL QUAD-HYPERACTIVE LEFT SIDE > RIGHT, NOT TENDER TO PALPATE. PLAN:CONSIDERING ON/OFF TEMPS WITH RLQ PAIN TO BACK, TRANSFER TO [facility] ER VIA AMBULANCE FOR FURTHER EVALUATION AND TREATMENT. PT [facility] AFTER MEDICALLY CLEARED AND STABLE. REPORT GIVEN TO DR. WALDRON AT THE [facility] ER. ADDENDUM:PT SIGNED REFUSAL PAPER FOR MEDICAL INTERVENTION TO THE ER STATING I' M PARTICIPATING IN GROUPS AND I FEEL FINE NOW.MAYBE I NEED TO CLEAN MY ABDOMEN. THE METHADONE IS MAKING ME CONSTIPATED'. PLAN 2:PT WANTS TO TAKE BOWEL CLEANSER. [facility] DIRECTED MONITOR PT AND TRANSFER TO ER IF ABDOMINAL PAIN WORSENS. INCREASE PO FLUIDS TOLERATED.
[2018-05-24] MEDS: MAGNESIUM CITRATE 300 ML BOTTLE PO PRN (14:13)
[2018-05-24] MEDS: DOCUSATE SODIUM 100 MG CAPSULE (FP) PO SCH (22:13)
[2018-05-24] MEDS: THIAMINE HCL 100 MG TABLET (FP) PO SCH (22:13)
[2018-05-25] MEDS ORDERED: METHADONE HCL 40 MG DISPERSABLE TABLET ONE (03:13)
[2018-05-25] MEDS ORDERED: METHADONE HCL 10 MG TABLET ONE (03:13)
[2018-05-25] MEDS: METHADONE 80 MG, METHADONE 20 MG PO SCH (06:19)
[2018-05-25] MEDS: IBUPROFEN 400 MG TABLET (FP) PO PRN ×2 (09:38→21:26)
[2018-05-25] MEDS: PRENATAL VITAMINS W/ FOLIC ACID TABLET (FP) PO SCH (09:38)
[2018-05-25] MEDS: THIAMINE HCL 100 MG TABLET (FP) PO SCH (21:25)
[2018-05-25] MEDS: DOCUSATE SODIUM 100 MG CAPSULE (FP) PO SCH (21:25)
[2018-05-25] MEDS: MELATONIN 5 MG TABLETS PO PRN (21:26)
[2018-05-26] MEDS ORDERED: METHADONE HCL 40 MG DISPERSABLE TABLET ONE (03:10)
[2018-05-26] MEDS ORDERED: METHADONE HCL 10 MG TABLET ONE (03:10)
[2018-05-26] MEDS: METHADONE 80 MG, METHADONE 20 MG PO SCH (06:40)
[2018-05-26] MEDS: PRENATAL VITAMINS W/ FOLIC ACID TABLET (FP) PO SCH (10:09)
[2018-05-26] MEDS: IBUPROFEN 400 MG TABLET (FP) PO PRN (19:55)
[2018-05-26] MEDS: DOCUSATE SODIUM 100 MG CAPSULE (FP) PO SCH (21:31)
[2018-05-26] MEDS: THIAMINE HCL 100 MG TABLET (FP) PO SCH (21:31)
[2018-05-26] MEDS: MELATONIN 5 MG TABLETS PO PRN (21:31)
[2018-05-27] MEDS ORDERED: METHADONE HCL 10 MG TABLET ONE (03:23)
[2018-05-27] MEDS ORDERED: METHADONE HCL 40 MG DISPERSABLE TABLET ONE (03:23)
[2018-05-27] MEDS: METHADONE 80 MG, METHADONE 20 MG PO SCH (06:30)
[2018-05-27] MEDS: IBUPROFEN 400 MG TABLET (FP) PO PRN (10:16)
[2018-05-27] MEDS: hydrOXYzine PAMOATE 50 MG CAPSULE (FP) PO PRN ×3 (10:16→21:37)
[2018-05-27] MEDS: PRENATAL VITAMINS W/ FOLIC ACID TABLET (FP) PO SCH (10:16)
[2018-05-27] MEDS: ACETAMINOPHEN 325 MG TABLET (FP) PO PRN ×2 (13:47→21:38)
[2018-05-27] MEDS: MELATONIN 5 MG TABLETS PO PRN (21:37)
[2018-05-27] MEDS: THIAMINE HCL 100 MG TABLET (FP) PO SCH (21:37)
[2018-05-27] MEDS: DOCUSATE SODIUM 100 MG CAPSULE (FP) PO SCH (21:37)
[2018-05-28] MEDS ORDERED: METHADONE HCL 40 MG DISPERSABLE TABLET ONE (05:48)
[2018-05-28] MEDS ORDERED: METHADONE HCL 10 MG TABLET ONE (05:48)
[2018-05-28] MEDS: METHADONE 80 MG, METHADONE 20 MG PO SCH (06:32)
[2018-05-28] MEDS: hydrOXYzine PAMOATE 50 MG CAPSULE (FP) PO PRN ×2 (08:49→21:04)
[2018-05-28] MEDS: PRENATAL VITAMINS W/ FOLIC ACID TABLET (FP) PO SCH (10:05)
[2018-05-28] MEDS: IBUPROFEN 400 MG TABLET (FP) PO PRN ×2 (10:05→21:04)
[2018-05-28] MEDS: ACETAMINOPHEN 325 MG TABLET (FP) PO PRN (13:00)
[2018-05-28] MEDS: MELATONIN 5 MG TABLETS PO PRN (21:04)
[2018-05-28] MEDS: THIAMINE HCL 100 MG TABLET (FP) PO SCH (21:04)
[2018-05-29] MEDS ORDERED: METHADONE HCL 10 MG TABLET ONE (03:19)
[2018-05-29] MEDS ORDERED: METHADONE HCL 40 MG DISPERSABLE TABLET ONE (03:20)
[2018-05-29] MEDS: METHADONE 80 MG, METHADONE 20 MG PO SCH (06:19)
[2018-05-29] MEDS: IBUPROFEN 400 MG TABLET (FP) PO PRN ×2 (08:23→16:44)
[2018-05-29] MEDS: PRENATAL VITAMINS W/ FOLIC ACID TABLET (FP) PO SCH (09:57)
[2018-05-29] MEDS: ACETAMINOPHEN 325 MG TABLET (FP) PO PRN ×2 (09:58→21:19)
[2018-05-29] MEDS ORDERED: MAG HYDROX/ALH/SMC/DPHA/LIDO 240 ML MOUTHWASH MM SCH (12:00)
[2018-05-29] MEDS: MAG HYDROX/ALH/SMC/DPHA/LIDO 240 ML MOUTHWASH MM SCH ×2 (13:00→18:30)
[2018-05-29] MEDS: THIAMINE HCL 100 MG TABLET (FP) PO SCH (21:17)
[2018-05-29] MEDS: MELATONIN 5 MG TABLETS PO PRN (21:18)
[2018-05-29] MEDS: hydrOXYzine PAMOATE 50 MG CAPSULE (FP) PO PRN (21:18)
[2018-05-29] MEDS ORDERED: PT OWN MED DRAWER 7, Y5N ONE (22:14)
[2018-05-30] MEDS: MAG HYDROX/ALH/SMC/DPHA/LIDO 240 ML MOUTHWASH MM SCH ×4 (00:15→18:30)
[2018-05-30] MEDS ORDERED: METHADONE HCL 10 MG TABLET ONE (03:27)
[2018-05-30] MEDS ORDERED: METHADONE HCL 40 MG DISPERSABLE TABLET ONE (03:27)
[2018-05-30] MEDS: METHADONE 80 MG, METHADONE 20 MG PO SCH (06:07)
[2018-05-30] MEDS ORDERED: PT OWN MED DRAWER 7, Y5N ONE ×2 (06:07→13:33)
[2018-05-30] MEDS: PRENATAL VITAMINS W/ FOLIC ACID TABLET (FP) PO SCH (10:10)
[2018-05-30] MEDS: IBUPROFEN 400 MG TABLET (FP) PO PRN ×2 (10:11→21:40)
[2018-05-30] MEDS: hydrOXYzine PAMOATE 50 MG CAPSULE (FP) PO PRN ×3 (10:11→21:39)
[2018-05-30] MEDS: ACETAMINOPHEN 325 MG TABLET (FP) PO PRN (13:34)
[2018-05-30] MEDS: MELATONIN 5 MG TABLETS PO PRN (21:39)
[2018-05-30] MEDS: THIAMINE HCL 100 MG TABLET (FP) PO SCH (21:39)
[2018-05-31] MEDS: MAG HYDROX/ALH/SMC/DPHA/LIDO 240 ML MOUTHWASH MM SCH ×5 (00:14→23:52)
[2018-05-31] MEDS ORDERED: METHADONE HCL 10 MG TABLET ONE (03:27)
[2018-05-31] MEDS ORDERED: PT OWN MED DRAWER 7, Y5N ONE ×3 (03:28→23:08)
[2018-05-31] MEDS ORDERED: METHADONE HCL 40 MG DISPERSABLE TABLET ONE (03:28)
[2018-05-31] MEDS: METHADONE 80 MG, METHADONE 20 MG PO SCH (06:10)
[2018-05-31] MEDS: hydrOXYzine PAMOATE 50 MG CAPSULE (FP) PO PRN ×2 (10:31→18:46)
[2018-05-31] MEDS: IBUPROFEN 400 MG TABLET (FP) PO PRN (10:31)
[2018-05-31] MEDS: PRENATAL VITAMINS W/ FOLIC ACID TABLET (FP) PO SCH (10:31)
[2018-05-31] MEDS: MELATONIN 5 MG TABLETS PO PRN (21:15)
[2018-05-31] MEDS: THIAMINE HCL 100 MG TABLET (FP) PO SCH (21:15)
[2018-06-01] MEDS: hydrOXYzine PAMOATE 50 MG CAPSULE (FP) PO PRN ×2 (05:12→10:18)
[2018-06-01] MEDS ORDERED: METHADONE HCL 40 MG DISPERSABLE TABLET ONE (05:45)
[2018-06-01] MEDS ORDERED: METHADONE HCL 10 MG TABLET ONE (05:45)
[2018-06-01] MEDS ORDERED: PT OWN MED DRAWER 7, Y5N ONE (05:45)
[2018-06-01] MEDS: METHADONE 80 MG, METHADONE 20 MG PO SCH (06:01)
[2018-06-01] MEDS: MAG HYDROX/ALH/SMC/DPHA/LIDO 240 ML MOUTHWASH MM SCH ×3 (06:02→18:30)
[2018-06-01] MEDS: PRENATAL VITAMINS W/ FOLIC ACID TABLET (FP) PO SCH (10:18)
[2018-06-01 10:26] LABS: URINE APPEARANCE CLEAR; URINE BILIRUBIN NEGATIVE (<2.0 mg/dL); URINE COLOR LTYELLOW; URINE GLUCOSE (UA) NEGATIVE (NEGATIVE); URINE KETONE NEGATIVE (NEGATIVE); URINE LEUK ESTERASE NEGATIVE (NEGATIVE); URINE NITRITE NEGATIVE (NEGATIVE); URINE PROTEIN NEGATIVE (NEGATIVE); URINE UROBILINOGEN NEGATIVE mg/dL (0.2-1.0)
[2018-06-01] MEDS: THIAMINE HCL 100 MG TABLET (FP) PO SCH (21:31)
[2018-06-01] MEDS: MELATONIN 5 MG TABLETS PO PRN (21:32)
[2018-06-02] MEDS: MAG HYDROX/ALH/SMC/DPHA/LIDO 240 ML MOUTHWASH MM SCH ×4 (00:15→17:39)
[2018-06-02] MEDS ORDERED: METHADONE HCL 10 MG TABLET ONE (05:54)
[2018-06-02] MEDS ORDERED: METHADONE HCL 40 MG DISPERSABLE TABLET ONE (05:54)
[2018-06-02] MEDS: METHADONE 80 MG, METHADONE 20 MG PO SCH (06:12)
[2018-06-02 07:18] VITALS: PULSE 69
[2018-06-02] MEDS: hydrOXYzine PAMOATE 50 MG CAPSULE (FP) PO PRN (10:39)
[2018-06-02] MEDS: PRENATAL VITAMINS W/ FOLIC ACID TABLET (FP) PO SCH (10:39)
[2018-06-02] MEDS: IBUPROFEN 400 MG TABLET (FP) PO PRN (10:40)
[2018-06-02] MEDS: MELATONIN 5 MG TABLETS PO PRN (21:23)
[2018-06-02] MEDS: THIAMINE HCL 100 MG TABLET (FP) PO SCH (21:23)
[2018-06-03] MEDS: MAG HYDROX/ALH/SMC/DPHA/LIDO 240 ML MOUTHWASH MM SCH ×2 (00:54→06:12)
[2018-06-03] MEDS ORDERED: METHADONE 80 MG, METHADONE 20 MG PO SCH (06:00)
[2018-06-03] MEDS ORDERED: METHADONE HCL 40 MG DISPERSABLE TABLET ONE (06:09)
[2018-06-03] MEDS ORDERED: METHADONE HCL 10 MG TABLET ONE (06:09)
[2018-06-03 07:09] VITALS: BP 113/69; TEMP 97.8
--- NOTE | 2018-06-03 12:47 | PN ---
[facility] Progress Note Note: PT COMPLETED REHAB AND DISCHARGED TODAY. PT MET WITH COUNSELOR AND WAS REFERRED TO [facility] FOR [facility] ON [address] [facility]. PT REPORTS HE HAS NO PMD BUT GOES TO [facility] WHEN NEEDED. PT IS ALERT O X 3. DENIES S/H/I. 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 Home Medications Medication Instructions Recorded Albuterol Sulfate Inhaler - 2 inh PO Q4H PRN #1 inh 06/03/18 [Ventolin HFA Inhaler -] Ferrous Sulfate [Feosol] 325 mg PO TID #90 ud 06/03/18 Naloxone HCl [Narcan] 4 mg NS ONCE #1 spray 06/03/18 Vital Signs 06/03/18 07:09 Temperature 97.8 F Pulse Rate 69 Respiratory 16 Rate Blood Pressure 113/69 Laboratory Tests 05/21/18 05/24/18 05/24/18 06:00 07:00 08:00 WBC 11.9 H RBC 3.82 Hgb 11.9 Hct 34.1 MCV 89.4 MCH 31.2 MCHC 34.9 RDW 17.1 H Plt Count 326 D MPV 9.2 Urine Color Yellow Urine Appearance Clear Urine pH 7.0 Ur Specific Oliver 1.016 Urine Protein Negative Urine Glucose (UA) Negative Urine Ketones Negative Urine Blood 2+ H Urine Nitrite Negative Urine Bilirubin Negative Urine Urobilinogen Negative Ur Leukocyte Esterase Trace Urine WBC (Auto) 2 Urine RBC (Auto) 3 Ur Epithelial Cells Rare HIV 1&2 Antibody Screen Negative HIV P24 Antigen Negative 06/01/18 08:30 WBC RBC Hgb Hct MCV MCH MCHC RDW Plt Count MPV Urine Color Ltyellow Urine Appearance Clear Urine pH 8.0 Ur Specific Oliver 1.010 Urine Protein Negative Urine Glucose (UA) Negative Urine Ketones Negative Urine Blood Negative Urine Nitrite Negative Urine Bilirubin Negative Urine Urobilinogen Negative Ur Leukocyte Esterase Negative Urine WBC (Auto) Urine RBC (Auto) Ur Epithelial Cells HIV 1&2 Antibody Screen HIV P24 Antigen NAD MEDICALLY STABLE PLAN:FOLLOW UP WITH CD AFTERCARE RECOMMENDED ON AT 10:00 A.M FOLLOW UP WITH MEDICAL MANAGEMENT AT [facility] WITHIN 1-2 WEEKS AFTER DISCHARGE.
== END 2018-06-03 09:00 | disposition home or self-care (01) | DRG 772 ==
LOC: YASAS 12:13 → Y3E 12:15
PROVIDERS: ADMIT Neuromusculoskeletal Medicine & OMM; ATTEND Neuromusculoskeletal Medicine & OMM
PROC: HZ42ZZZ Group Counseling for Substance Abuse Treatment, Cognitive-Behavioral (ICD-10-PCS; principal; 2018-05-20)
DX: F13.20 Sedative, hypnotic or anxiolytic dependence, uncomplicated (principal); F14.20 Cocaine dependence, uncomplicated; F11.20 Opioid dependence, uncomplicated; F19.280 Other psychoactive substance dependence with psychoactive substance-induced anxiety disorder; F19.282 Other psychoactive substance dependence with psychoactive substance-induced sleep disorder; F19.24 Other psychoactive substance dependence with psychoactive substance-induced mood disorder; F39 Unspecified mood [affective] disorder; D64.9 Anemia, unspecified; J45.20 Mild intermittent asthma, uncomplicated; K59.00 Constipation, unspecified
CPT/HCPCS: 36415; 81003; 81015; 85027; 87086; 87389

== ENCOUNTER 2018-09-03 10:00 | Inpatient (IN) | payer OTHER ==
[2018-09-03 10:22] VITALS: BMI 30.8
--- NOTE | 2018-09-03 12:20 | HP ---
"CIWA Score Nausea/Vomitin-Mild Nausea/No Vomiting Muscle Tremors: None Anxiety: 4-Mod. Anxious/Guarded Agitation: 3 Paroxysmal Sweats: 1-Minimal Palms Moist Orientation: 0-Oriented Tacttile Disturbances: 0-None Auditory Disturbances: 0-None Visual Disturbances: 0-None Headache: 0-None Present CIWA-Ar Total Score: 9 - Admission Criteria OASAS Guidelines: Admission for Medically Managed Detox: Requires at least one of the followin. CIWA greater than 12 2. Seizures within the past 24 hours 3. Delirium tremens within the past 24 hours 4. Hallucinations within the past 24 hours 5. Acute intervention needed for co occurring medical disorder 6. Acute intervention needed for co occurring psychiatric disorder 7. Severe withdrawal that cannot be handled at a lower level of care (continued vomiting, continued diarrhea, abnormal vital signs) requiring intravenous medication and/or fluids 8. Admission ROS S - HPI Allergies/Adverse Reactions: Allergies Allergy/AdvReac Type Severity Reaction Status Date / Time No Known Drug Allergies Allergy Verified 09/03/18 10:22 History of Present Illness: Search Terms: lauri villareal, 1970 Search Date: 09/03/2018 12:15:47 PM The Drug Utilization Report below displays all of the controlled substance prescriptions, if any, that your patient has filled in the last twelve months. The information displayed on this report is compiled from pharmacy submissions to the Department, and accurately reflects the information as submitted by the pharmacies. This report was requested by: Jessica Ochoa | Reference #: [id number] There are no results for the search terms that you entered. pt here requesting detox from benzodiazepine use , reports 8-10 xanax / day x 3 years , latest use today , previous detox at this facility Apr 2018 , denies w/d seizures . on MMTP x 8 years . pt is very poor historian , intoxicated. pmhx : anemia , chronic back pain pshx : btl , lmp now psych : denies , denies SI / HI Exam Limitations: Clinical Condition, Intoxication - Ebola screening Have you traveled outside of the country in the last 21 days: No Have you had contact with anyone from an Ebola affected area: No Do you have a fever: No - Review of Systems Constitutional: See HPI EENT: reports: See HPI Respiratory: reports: Cough (x 2 weeks) Cardiac: reports: No Symptoms Reported GI: reports: No Symptoms Reported : reports: Frequency Musculoskeletal: reports: See HPI Integumentary: reports: Dryness, Other (reprots itching in feet , requesting foot powder.) Neuro: reports: See HPI Endocrine: reports: No Symptoms Reported Psychiatric: reports: other (drowsy , intoxicated , falls asleep frequently , awakened by verbal stimuli , difficult to understand answers 2/2 garbled speech .) Patient History - Patient Medical History Hx Anemia: Yes (ON IRON SUPPLEMENT) Hx Asthma: Yes Hx Chronic Obstructive Pulmonary Disease (COPD): No Hx Cancer: No Hx Cardiac Disorders: No Hx Congestive Heart Failure: No Hx Hypertension: No Hx Hypercholesterolemia: No Hx Pacemaker: No HX Cerebrovascular Accident: No Hx Seizures: No Hx Dementia: No Hx Diabetes: No Hx Gastrointestinal Disorders: No Hx Liver Disease: No Hx Genitourinary Disorders: No Hx Sexually Transmitted Disorders: No Hx Renal Disease (ESRD): No Hx Thyroid Disease: No Hx Human Immunodeficiency Virus (HIV): No (last 11/03) Hx Hepatitis C: No Hx Depression: Yes Hx Suicide Attempt: No Hx Bipolar Disorder: No Hx Schizophrenia: No - Patient Surgical History Past Surgical History: Yes Hx Neurologic Surgery: No Hx Cataract Extraction: No Hx Cardiac Surgery: No Hx Lung Surgery: No Hx Breast Surgery: No Hx Breast Biopsy: No Hx Abdominal Surgery: No Hx Appendectomy: No Hx Cholecystectomy: No Hx Genitourinary Surgery: No Hx Section: No Hx Orthopedic Surgery: Yes (LOWER BACK LASER SX IN 1989) Other Surgical History: tubial ligation in 1995 Anesthesia Reaction: No - PPD History Date: 05/18/18 Results: 0mm - Reproductive History Last Menstrual Period: 05/18/18 - Smoking Cessation Smoking history: Never smoked Have you smoked in the past 12 months: No Aproximately how many cigarettes per day: 0 Cigars Per Day: 0 Hx Chewing Tobacco Use: No - Substances abused Alprazolam (Xanax) Other (specify): 2MG Substance route: Oral Frequency: Daily Amount used: 10 TABS OF 2MG PILLS Age of first use: 29 Date of last use: 09/03/18 Benzodiazepine (Klonopin) Substance route: Oral Frequency: Daily Amount used: 4MG Age of first use: 34 Date of last use: 09/02/18 Cocaine Substance route: Inhalation Frequency: 1-2 times per week Amount used: 2BAG Age of first use: 20 Date of last use: 08/29/18 Family Disease History - Family Disease History Family Disease History: Other: Father (DRUG, OF AN OD), Mother (DRUG, cerebral aneurysm) Admission Physical Exam BHS - Vital Signs Vital Signs: Vital Signs - 24 hr 09/03/18 10:17 Temperature 96.1 F L Pulse Rate 66 Respiratory 18 Rate Blood Pressure 112/81 - Physical General Appearance: Yes: Disheveled, Intoxicated, Anxious HEENTM: Yes: EOMI, Hearing grossly Normal, Normocephalic, Normal Voice, Pharyngeal Erythemia Respiratory: Yes: Chest Non-Tender, Normal Breath Sounds, Rhonchi (MADHAVI/ LLL scattered , states has had a cold , had cxr 2 weeks ago per pt) Neck: Yes: No masses,lesions,Nodules, Trachea in good position Cardiology: Yes: Regular Rhythm, Regular Rate, S1, S2 Abdominal: Yes: Non Tender, Soft Musculoskeletal: Yes: full range of Motion Extremities: Yes: Normal Range of Motion, Non-Tender Neurological: Yes: Motor Strength 5/5, Other (drowsy , falls asleep frequently during interview , awakened by verbal stimuli) Integumentary: Yes: Warm - Diagnostic (1) Cocaine dependence Current Visit: Yes Status: Acute Qualifiers: Substance use status: uncomplicated Qualified Code(s): F14.20 - Cocaine dependence, uncomplicated (2) Sedative hypnotic or anxiolytic dependence Current Visit: Yes Status: Acute (3) Opioid dependence on agonist therapy Current Visit: Yes Status: Chronic Breathalyzer - Breathalyzer Breathalyzer: 0 Urine Drug Screen - Test Device Lot number: [id number] Expiration date: 05/16/20 - Control Is test valid?: Yes - Results Drug screen NEGATIVE: No Urine drug screen results: MONIKA-Cocaine, MTD-Methadone, BZO-Benzodiazepines Inpatient Rehab Admission - Rehab Decision to Admit Inpatient rehab admission?: No"
[2018-09-03] MEDS ORDERED: ALBUTEROL SO4 0.083% IH SOL 2.5 MG/3 ML VIAL.NEB. NEB PRN (12:34)
[2018-09-03] MEDS ORDERED: BISMUTH SUBSALICYLATE 262 MG/15 ML BTL PO PRN (12:35)
[2018-09-03] MEDS ORDERED: ACETAMINOPHEN 325 MG TABLET (FP) PO PRN (12:35)
[2018-09-03] MEDS ORDERED: MENTHOL/PHENOL 1 EACH UD MM PRN (12:35)
[2018-09-03] MEDS ORDERED: MELATONIN 5 MG TABLETS PO PRN (12:35)
[2018-09-03] MEDS ORDERED: IBUPROFEN 400 MG TABLET (FP) PO PRN (12:35)
[2018-09-03] MEDS ORDERED: MAGNESIUM HYDROX 2400MG/30ML ORAL SUSPENSION 30 ML CUP PO PRN (12:35)
[2018-09-03] MEDS ORDERED: MAGNESIUM CITRATE 300 ML BOTTLE PO PRN (12:35)
[2018-09-03] MEDS ORDERED: MAG HYDROX/AL HYDROX/SIMETH 30 ML UNIT-DOSE CUP PO PRN (12:35)
[2018-09-03] MEDS ORDERED: chlordiazePOXIDE HCL 10 MG CAPSULE PO PRN (12:36)
[2018-09-03] MEDS ORDERED: chlordiazePOXIDE HCL 25 MG CAPSULE PO SCH (13:00)
[2018-09-03] MEDS ORDERED: diazePAM 5 MG TABLET PO SCH (14:00)
[2018-09-03] MEDS ORDERED: diazePAM 5 MG TABLET PO PRN ×2 (14:36→14:43)
[2018-09-03] MEDS ORDERED: diazePAM 5 MG TABLET PO ONE (14:36)
--- NOTE | 2018-09-03 14:47 | PN ---
S Progress Note Note: pt states she is not here for alcohol she is here for a benzo addiction. Pt does not want librium detox she wants valium detox. Pt regimen changed as per pt request.
[2018-09-03] MEDS: ACETAMINOPHEN 325 MG TABLET (FP) PO PRN (22:20)
[2018-09-03] MEDS: THIAMINE HCL 100 MG TABLET (FP) PO SCH (22:20)
[2018-09-03] MEDS: diazePAM 5 MG TABLET PO SCH (22:20)
[2018-09-04] MEDS ORDERED: METHADONE HCL 5 MG TABLET ONE (04:54)
[2018-09-04] MEDS ORDERED: METHADONE HCL 40 MG DISPERSABLE TABLET ONE (04:54)
[2018-09-04] MEDS ORDERED: METHADONE HCL 10 MG TABLET PO SCH (06:00)
[2018-09-04] MEDS: diazePAM 5 MG TABLET PO SCH ×3 (06:09→22:02)
[2018-09-04] MEDS: METHADONE 80 MG, METHADONE 5 MG PO SCH (06:09)
[2018-09-04] MEDS: PRENATAL VITAMINS W/ FOLIC ACID TABLET (FP) PO SCH (10:23)
[2018-09-04 11:25] LABS: HEMATOCRIT 38.4 % (32.4-45.2); MCH 31.9 pg (25.7-33.7); MCHC 33.7 g/dl (32.0-36.0); MEAN CELL VOLUME 94.7 fl (80-96); MEAN PLT VOLUME 8.8 fl (7.5-11.1); PLATELET COUNT 336 K/MM3 (134-434); RBC 4.06 M/mm3 (3.60-5.2); RDW 13.2 % (11.6-15.6); WHITE BLOOD COUNT 5.3 K/mm3 (4.0-10.0)
[2018-09-04 11:56] LABS: ALBUMIN 3.2 g/dl (3.4-5.0); BILIRUBIN,TOTAL 0.3 mg/dL (0.2-1); BLOOD UREA NITROGEN 9.5 mg/dL (7-18); CALCIUM 8.6 mg/dL (8.5-10.1); CREATININE 0.9 mg/dL (0.55-1.3); POTASSIUM 4.4 mmol/L (3.5-5.1); TOT PROT 6.3 g/dl (6.4-8.2)
--- NOTE | 2018-09-04 12:03 | PN ---
S CIWA - CIWA Score Nausea/Vomitin-No Nausea/No Vomiting Muscle Tremors: 3 Anxiety: 2 Agitation: 3 Paroxysmal Sweats: 2 Orientation: 0-Oriented Tacttile Disturbances: 0-None Auditory Disturbances: 0-None Visual Disturbances: 0-None Headache: 0-None Present CIWA-Ar Total Score: 10 S Progress Note (SOAP) Subjective: anxiety sweats interrupted sleep body aches Objective: 09/04/18 12:02 Vital Signs Temperature 97.3 F L 09/04/18 08:21 Pulse Rate 67 09/04/18 08:21 Respiratory Rate 18 09/04/18 08:21 Blood Pressure 100/60 09/04/18 08:21 O2 Sat by Pulse Oximetry (%) Laboratory Tests 09/03/18 09/04/18 09/04/18 11:44 09:30 09:30 WBC 5.3 RBC 4.06 Hgb 13.0 Hct 38.4 MCV 94.7 MCH 31.9 MCHC 33.7 RDW 13.2 D Plt Count 336 MPV 8.8 Sodium 141 Potassium 4.4 Chloride 105 Carbon Dioxide 30 Anion Gap 6 L BUN 9.5 Creatinine 0.9 Est GFR (CKD-EPI)AfAm 87.63 Est GFR (CKD-EPI)NonAf 75.61 Calcium 8.6 Total Bilirubin 0.3 AST 11 L ALT 16 Alkaline Phosphatase 58 Total Protein 6.3 L Albumin 3.2 L POC Urine HCG, Qual Negative labs noted aaox3 ambulating no acute distress Assessment: 09/04/18 12:02 mild withdrawal sx Plan: continue detox increase fluids
--- NOTE | 2018-09-04 12:04 | PN ---
S Progress Note Note: pt states and confirm with her counselor that her live in boyfriend on the same unit. Pt was transferred to 3n detox to complete her detox. pt did not hesitate to leave.
--- NOTE | 2018-09-04 12:13 | PN ---
[facility] Progress Note Note: Laboratory Tests 09/03/18 09/04/18 09/04/18 11:44 09:30 09:30 WBC 5.3 RBC 4.06 Hgb 13.0 Hct 38.4 MCV 94.7 MCH 31.9 MCHC 33.7 RDW 13.2 D Plt Count 336 MPV 8.8 Sodium 141 Potassium 4.4 Chloride 105 Carbon Dioxide 30 Anion Gap 6 L BUN 9.5 Creatinine 0.9 Est GFR (CKD-EPI)AfAm 87.63 Est GFR (CKD-EPI)NonAf 75.61 Random Glucose 47 L* Calcium 8.6 Total Bilirubin 0.3 AST 11 L ALT 16 Alkaline Phosphatase 58 Total Protein 6.3 L Albumin 3.2 L POC Urine HCG, Qual Negative random glucose noted; 47 pt is not a diabetic or any h/o of hypoglycemic. pt is asymptomatic. will repeat lab
[2018-09-04] MEDS ORDERED: chlordiazePOXIDE 5 MG CAPSULE PO SCH (13:00)
[2018-09-04] MEDS ORDERED: diazePAM 5 MG TABLET PO SCH (14:00)
--- NOTE | 2018-09-04 14:41 | PN ---
[facility] Progress Note Note: Patient Arrived on [facility] Detox Unit [address] [place] [address], Transferred from Detox Unit [address] [place] [address] due to fact htat her Partner was also admitted on Detox Unit [address] [place]. Patient Reports Anxiety, Interrupted Sleep, and Sweating as Detox / Withdrawal Symptoms at this Time. Vital Signs Temperature 98.2 F 09/04/18 12:07 Pulse Rate 76 09/04/18 12:07 Respiratory Rate 18 09/04/18 12:07 Blood Pressure 101/73 09/04/18 12:07 O2 Sat by Pulse Oximetry (%) Vital Signs Noted; Stable At This time. Laboratory Tests 09/03/18 09/04/18 09/04/18 11:44 09:30 09:30 WBC 5.3 RBC 4.06 Hgb 13.0 Hct 38.4 MCV 94.7 MCH 31.9 MCHC 33.7 RDW 13.2 D Plt Count 336 MPV 8.8 Sodium 141 Potassium 4.4 Chloride 105 Carbon Dioxide 30 Anion Gap 6 L BUN 9.5 Creatinine 0.9 Est GFR (CKD-EPI)AfAm 87.63 Est GFR (CKD-EPI)NonAf 75.61 Random Glucose 47 L* Calcium 8.6 Total Bilirubin 0.3 AST 11 L ALT 16 Alkaline Phosphatase 58 Total Protein 6.3 L Albumin 3.2 L POC Urine HCG, Qual Negative RPR Titer 09/04/18 09:30 WBC RBC Hgb Hct MCV MCH MCHC RDW Plt Count MPV Sodium Potassium Chloride Carbon Dioxide Anion Gap BUN Creatinine Est GFR (CKD-EPI)AfAm Est GFR (CKD-EPI)NonAf Random Glucose Calcium Total Bilirubin AST ALT Alkaline Phosphatase Total Protein Albumin POC Urine HCG, Qual RPR Titer Nonreactive LABS NOTED. PATIENT A & O X 3, OBSERVED TO BE AMBULATING ON UNIT UNASSISTED. IN NO ACUTE DISTRESS. Admission Random Glucose Level noted to be Low. Repeat Random Glucose Level Ordered for tomorrow AM. Dariusz Cabrera NP
[2018-09-04] MEDS: THIAMINE HCL 100 MG TABLET (FP) PO SCH (22:02)
[2018-09-05] MEDS ORDERED: METHADONE HCL 40 MG DISPERSABLE TABLET ONE (04:43)
[2018-09-05] MEDS ORDERED: METHADONE HCL 5 MG TABLET ONE (04:44)
[2018-09-05] MEDS: METHADONE 80 MG, METHADONE 5 MG PO SCH (05:26)
[2018-09-05] MEDS ORDERED: diazePAM 5 MG TABLET PO ONE (06:00)
[2018-09-05] MEDS: PRENATAL VITAMINS W/ FOLIC ACID TABLET (FP) PO SCH (09:17)
[2018-09-05] MEDS: diazePAM 5 MG TABLET PO SCH ×2 (09:17→21:41)
[2018-09-05] MEDS ORDERED: chlordiazePOXIDE HCL 10 MG CAPSULE PO PRN (13:00)
[2018-09-05] MEDS ORDERED: chlordiazePOXIDE HCL 10 MG CAPSULE PO SCH (13:00)
--- NOTE | 2018-09-05 16:50 | PN ---
S CIWA - CIWA Score Nausea/Vomitin-No Nausea/No Vomiting Muscle Tremors: None Anxiety: 4-Mod. Anxious/Guarded Agitation: 1-Slight > Activity Paroxysmal Sweats: No Perspiration Orientation: 0-Oriented Tacttile Disturbances: 2-Mild Itch/Numbness/Burn Auditory Disturbances: 0-None Visual Disturbances: 2-Mild Sensitivity Headache: 0-None Present CIWA-Ar Total Score: 9 [facility] Progress Note (SOAP) Subjective: Anxious. Objective: PATIENT A & O X 3, OBSERVED AMBULATING ON UNIT UNASSISTED. IN NO ACUTE DISTRESS. 09/05/18 16:49 Vital Signs Temperature 97.2 F L 09/05/18 13:42 Pulse Rate 70 09/05/18 13:42 Respiratory Rate 18 09/05/18 13:42 Blood Pressure 95/59 L 09/05/18 13:42 O2 Sat by Pulse Oximetry (%) Laboratory Tests 09/03/18 09/04/18 09/04/18 11:44 09:30 09:30 WBC 5.3 RBC 4.06 Hgb 13.0 Hct 38.4 MCV 94.7 MCH 31.9 MCHC 33.7 RDW 13.2 D Plt Count 336 MPV 8.8 Sodium 141 Potassium 4.4 Chloride 105 Carbon Dioxide 30 Anion Gap 6 L BUN 9.5 Creatinine 0.9 Est GFR (CKD-EPI)AfAm 87.63 Est GFR (CKD-EPI)NonAf 75.61 Random Glucose 47 L* Calcium 8.6 Total Bilirubin 0.3 AST 11 L ALT 16 Alkaline Phosphatase 58 Total Protein 6.3 L Albumin 3.2 L POC Urine HCG, Qual Negative RPR Titer 09/04/18 09/05/18 09:30 07:30 WBC RBC Hgb Hct MCV MCH MCHC RDW Plt Count MPV Sodium Potassium Chloride Carbon Dioxide Anion Gap BUN Creatinine Est GFR (CKD-EPI)AfAm Est GFR (CKD-EPI)NonAf Random Glucose 80 Calcium Total Bilirubin AST ALT Alkaline Phosphatase Total Protein Albumin POC Urine HCG, Qual RPR Titer Nonreactive LABS NOTED. RESULT OF REPEAT RANDOM GLUCOSE LEVEL NOTED. GLUCOSE LEVEL NOW WITHIN NORMAL RANGE. 09/05/18 16:49 Assessment: 09/05/18 16:50 WITHDRAWAL SYMPTOMS. Plan: CONTINUE DETOX. PATIENT SCHEDULED FOR D/C TOMORROW .
[2018-09-05] MEDS: ACETAMINOPHEN 325 MG TABLET (FP) PO PRN (21:41)
[2018-09-05] MEDS: THIAMINE HCL 100 MG TABLET (FP) PO SCH (21:41)
[2018-09-05 22:15] VITALS: PULSE 61
[2018-09-06] MEDS ORDERED: METHADONE HCL 5 MG TABLET ONE (05:00)
[2018-09-06] MEDS ORDERED: METHADONE HCL 40 MG DISPERSABLE TABLET ONE (05:00)
[2018-09-06] MEDS ORDERED: diazePAM 5 MG TABLET PO SCH (06:00)
[2018-09-06] MEDS: METHADONE 80 MG, METHADONE 5 MG PO SCH (06:00)
[2018-09-06 07:41] VITALS: BP 92/62; TEMP 98.3
--- NOTE | 2018-09-06 14:34 | DS ---
[facility] Detox Discharge Summary Admission Date: 09/03/18 Discharge Date: 09/06/18 - History Present History: Cocaine Dependence, Opioid Dependence, Sedative Dependence, MMTP Additional Comments: PATIENT ELECTING TO RETURN HOME. PATIENT WILL RETURN TO [facility], WHERE SHE HAS PREVIOUSLY BEEN A CLIENT. PATIENT ALSO ADVISED TO CONSIDER LOCAL 12-STEP / NA / [facility]PATIENT [facility] FOR AFTERCARE. PATIENT VERBALIZED UNDERSTANDING OF RECOMMENDATION. PATIENT WAS DISCHARGED FROM DETOX UNIT IN STABLE MEDICAL CONDITION. Pertinent Past History: History Of Lower Back Pain, M.M.T.P., History Of Anemia, Asthma, Depression. - Physical Exam Results Vital Signs: Vital Signs Temperature 98.3 F 09/06/18 07:41 Pulse Rate 61 09/06/18 07:41 Respiratory Rate 16 09/06/18 07:41 Blood Pressure 92/62 09/06/18 07:41 O2 Sat by Pulse Oximetry (%) Pertinent Admission Physical Exam Findings: WITHDRAWAL SYMPTOMS. Laboratory Tests 09/03/18 09/04/18 09/04/18 11:44 09:30 09:30 WBC 5.3 RBC 4.06 Hgb 13.0 Hct 38.4 MCV 94.7 MCH 31.9 MCHC 33.7 RDW 13.2 D Plt Count 336 MPV 8.8 Sodium 141 Potassium 4.4 Chloride 105 Carbon Dioxide 30 Anion Gap 6 L BUN 9.5 Creatinine 0.9 Est GFR (CKD-EPI)AfAm 87.63 Est GFR (CKD-EPI)NonAf 75.61 Random Glucose 47 L* Calcium 8.6 Total Bilirubin 0.3 AST 11 L ALT 16 Alkaline Phosphatase 58 Total Protein 6.3 L Albumin 3.2 L POC Urine HCG, Qual Negative RPR Titer 09/04/18 09/05/18 09:30 07:30 WBC RBC Hgb Hct MCV MCH MCHC RDW Plt Count MPV Sodium Potassium Chloride Carbon Dioxide Anion Gap BUN Creatinine Est GFR (CKD-EPI)AfAm Est GFR (CKD-EPI)NonAf Random Glucose 80 Calcium Total Bilirubin AST ALT Alkaline Phosphatase Total Protein Albumin POC Urine HCG, Qual RPR Titer Nonreactive LABS NOTED. - Treatment Hospital Course: Detox Protocol Followed, Detoxed Safely, Responded well, Discharged Condition Good Patient has Accepted a Rehab Referral to: PATIENT WILL RETURN TO PREVIOUS [facility]. - Medication Discharge Medications: Ambulatory Orders Albuterol Sulfate Inhaler - [Ventolin HFA Inhaler -] 2 inh PO Q4H PRN #1 inh Ferrous Sulfate [Feosol] 325 mg PO TID #90 ud 06/03/18 - Diagnosis (1) Cocaine dependence Status: Acute Qualifiers: Substance use status: uncomplicated Qualified Code(s): F14.20 - Cocaine dependence, uncomplicated (2) Sedative hypnotic or anxiolytic dependence Status: Acute (3) Opioid dependence on agonist therapy Status: Chronic - AMA Did Patient Leave Against Medical Advice: No
== END 2018-09-06 08:58 | disposition home or self-care (01) | DRG 773 ==
LOC: YASAS 10:00 → Y6N 13:03 → Y3N 09-04 14:14
PROVIDERS: ADMIT Surgery; ATTEND Surgery
PROC: HZ2ZZZZ Detoxification Services for Substance Abuse Treatment (ICD-10-PCS; principal; 2018-09-03)
DX: F13.230 Sedative, hypnotic or anxiolytic dependence with withdrawal, uncomplicated (principal); F14.20 Cocaine dependence, uncomplicated; F11.20 Opioid dependence, uncomplicated; F32.9 Major depressive disorder, single episode, unspecified; D64.9 Anemia, unspecified; M54.5 Low back pain; J45.909 Unspecified asthma, uncomplicated
CPT/HCPCS: 36415; 80053; 81025; 82947; 85027; 86593

== ENCOUNTER 2018-09-11 11:55 | Inpatient (IN) | payer OTHER ==
--- NOTE | 2018-09-11 16:56 | HP ---
Screened but not Admitted - Documentation of Visit Additional Information/Explanation: Patient states just wants to rest for a couple of days. Declined rehab and states will leave.
--- NOTE | 2018-09-11 17:06 | HP ---
CIWA Score Nausea/Vomitin-Mild Nausea/No Vomiting Muscle Tremors: None Anxiety: 2 Agitation: 0-Normal Activity Paroxysmal Sweats: No Perspiration Orientation: 1-Uncertain about Date Tacttile Disturbances: 0-None Auditory Disturbances: 0-None Visual Disturbances: 0-None Headache: 0-None Present CIWA-Ar Total Score: 4 - Admission Criteria OASAS Guidelines: Admission for Medically Managed Detox: Requires at least one of the followin. CIWA greater than 12 2. Seizures within the past 24 hours 3. Delirium tremens within the past 24 hours 4. Hallucinations within the past 24 hours 5. Acute intervention needed for co occurring medical disorder 6. Acute intervention needed for co occurring psychiatric disorder 7. Severe withdrawal that cannot be handled at a lower level of care (continued vomiting, continued diarrhea, abnormal vital signs) requiring intravenous medication and/or fluids 8. Admission ROS S - [facility] Chief Complaint: Here cause I don't feel good and started back using Xanax. Allergies/Adverse Reactions: Allergies Allergy/AdvReac Type Severity Reaction Status Date / Time No Known Drug Allergies Allergy Verified 09/11/18 14:24 History of Present Illness: Patient started using Xanax one day after discharge from [facility] detox on 09/06/18. used 10 mg Xanax between yesterday and today. Patient states her program sent her back to [facility] for rehab. Has been feeling very weak and went to [facility] 2 days ago, left AMA , and then went to [facility] yesterday. States [facility] stated that HGB was low and told to take iron. EKGs were done at both facilities and was not told there was a problem. she slept in the [place] last night and is c/o feeling weak and tired. Benzo use began at age 29. takes either Xanax or Klonopin between 4 and 8 mg daily for 3 of the last 5 days. Cocaine use began at age 20. Current use is $20 nasal. Currently on VIP MMTP for hx opiate use disorder. Current dose 85 mg PO Daily. States was medicated today. Denies nicotine use. Hx: Seizure 6 months; Blackouts 8 months ago. Denies overdose. Longest period of sobriety 11 months 2017-17. Currently on VIP MMTP for hx opiate use disorder. Current dose 85 mg PO Daily. States was medicated today. PMHx: Asthma - last exacerbation 2 days ago; Anemia; Chronic ow back pain; MHHx: Anxiety, PTSD; Depression. Insomnia. Denies thoughts of harming self or others. Search Terms: Kellie Cote, 1970 Search Date: 09/11/2018 05:22:20 PM The Drug Utilization Report below displays all of the controlled substance prescriptions, if any, that your patient has filled in the last twelve months. The information displayed on this report is compiled from pharmacy submissions to the Department, and accurately reflects the information as submitted by the pharmacies. This report was requested by: Nita Goldstein | Reference #: [id number] There are no results for the search terms that you entered. Search Terms: Kellie Cote, 1970 Search Date: 09/11/2018 05:22:46 PM States Searched: [place], [place], [place], [place], [place], [place] The Drug Utilization Report below displays the controlled substance prescriptions, if any, that were dispensed in the indicated state(s). The information displayed on this report is compiled from requests submitted to other states' PMPs, and accurately reflects the information as returned by them. Blank finn indicate data not provided by other state. This report was requested by: Nita Goldstein | Reference #: [id number] Exam Limitations: No Limitations - Ebola screening Have you traveled outside of the country in the last 21 days: No (N) Have you had contact with anyone from an Ebola affected area: No Have you been sick,other than usual withdrawal symptoms: No (Denies recent measles exposure) Do you have a fever: No - Review of Systems Constitutional: Changes in sleep (Difficulty falling asleep), Weakness EENT: reports: No Symptoms Reported Respiratory: reports: Shortness of Breath Cardiac: reports: Other (States gets intermittent chest pain r/t anxiety.) GI: reports: Nausea : reports: Burning (Burning w/ urination x 2 weeks. No blood.) Musculoskeletal: reports: Back Pain (Chronic sharp low back pain. "10". Increases w/ movement. Medications make it better.) Integumentary: reports: No Symptoms Reported Neuro: reports: No Symptoms reported Endocrine: reports: No Symptoms Reported Hematology: reports: Anemia (Low iron) Psychiatric: reports: Judgement Intact, Agitated, Anxious, Depressed (Denies thoughts of harming self or others), other (KNows month, year, day of week. Unsure of date) Patient History - Patient Medical History Hx Anemia: Yes (ON IRON SUPPLEMENT) Hx Asthma: Yes Hx Chronic Obstructive Pulmonary Disease (COPD): No Hx Cancer: No Hx Cardiac Disorders: No Hx Congestive Heart Failure: No Hx Hypertension: No Hx Hypercholesterolemia: No Hx Pacemaker: No HX Cerebrovascular Accident: No Hx Seizures: No Hx Dementia: No Hx Diabetes: No Hx Gastrointestinal Disorders: No Hx Liver Disease: No Hx Genitourinary Disorders: No Hx Sexually Transmitted Disorders: No Hx Renal Disease (ESRD): No Hx Thyroid Disease: No Hx Human Immunodeficiency Virus (HIV): No (last 11/03) Hx Hepatitis C: No Hx Depression: Yes Hx Suicide Attempt: No Hx Bipolar Disorder: No Hx Schizophrenia: No - Patient Surgical History Past Surgical History: Yes Hx Neurologic Surgery: No Hx Cataract Extraction: No Hx Cardiac Surgery: No Hx Lung Surgery: No Hx Breast Surgery: No Hx Breast Biopsy: No Hx Abdominal Surgery: No Hx Appendectomy: No Hx Cholecystectomy: No Hx Genitourinary Surgery: No Hx Section: No Hx Orthopedic Surgery: Yes (LOWER BACK LASER SX IN 1989) Other Surgical History: tubial ligation in 1995 Anesthesia Reaction: No - PPD History Previous Implant?: Yes Documented Results: Negative w/proof Implanted On Prior [facility] Admission?: Yes Date: 05/18/18 Results: 0mm PPD to be Administered?: No - Reproductive History Patient is a Female of Child Bearing Age (11 -55 yrs old): Yes Last Menstrual Period: 05/18/18 Patient : No - Smoking Cessation Smoking history: Never smoked Have you smoked in the past 12 months: No Aproximately how many cigarettes per day: 0 Cigars Per Day: 0 Hx Chewing Tobacco Use: No Initiated information on smoking cessation: No - Substance & Tx. History Hx Alcohol Use: Yes Substance Use Type: Cocaine, Marijuana Hx Substance Use Treatment: Yes (detox, rehab, MMTP) - Substances abused Alprazolam (Xanax) Other (specify): 2MG Substance route: Oral Frequency: Daily Amount used: 8mg Age of first use: 29 Date of last use: 09/11/18 Benzodiazepine (Klonopin) Substance route: Oral Frequency: Daily Amount used: 4MG Age of first use: 34 Date of last use: 09/09/18 Cocaine Substance route: Inhalation Frequency: Daily Amount used: $20 Age of first use: 20 Date of last use: 09/08/18 Family Disease History - Family Disease History Family Disease History: Other: Father (DRUG, OF AN OD), Mother (DRUG, cerebral aneurysm) Admission Physical Exam [facility] - Vital Signs Vital Signs: Vital Signs - 24 hr 09/11/18 14:32 Temperature 96.2 F L Pulse Rate 68 Respiratory 20 Rate Blood Pressure 100/68 - Physical General Appearance: Yes: Nourished, Irritable, Anxious HEENTM: Yes: EOMI, Hearing grossly Normal, Normocephalic, Normal Voice, TEAGAN, Pharynx Normal Respiratory: Yes: Lungs Clear, Normal Breath Sounds, No Respiratory Distress Neck: Yes: No masses,lesions,Nodules, Supple Breast: Yes: Breast Exam Deferred Cardiology: Yes: Regular Rhythm, S1, S2, Bradycardia (HR: 58) Abdominal: Yes: Normal Bowel Sounds, Non Tender, Soft Genitourinary: Yes: Burning Back: Yes: Normal Inspection Musculoskeletal: Yes: full range of Motion, Gait Steady, Other (Swelling of (L) outer malleolus. Non-tender. No increased erythema or warmth.) Extremities: Yes: Normal Capillary Refill, Normal Range of Motion Neurological: Yes: visually impaired teacher II-XII NML intact, Alert, Motor Strength 5/5 Integumentary: Yes: Normal Color, Dry, Warm, Other (Superficial abrasion (R) calf area. Tender to touch. Negative Ayad's. Pedal pulses (+)) Lymphatic: Yes: Within Normal Limits - Diagnostic (1) Sedative, hypnotic or anxiolytic use disorder, mild, abuse Current Visit: Yes Status: Chronic (2) Cocaine dependence Current Visit: Yes Status: Chronic Qualifiers: Substance use status: uncomplicated Qualified Code(s): F14.20 - Cocaine dependence, uncomplicated (3) Anemia Current Visit: Yes Status: Chronic Qualifiers: Anemia type: iron deficiency Iron deficiency anemia type: unspecified iron deficiency Qualified Code(s): D50.9 - Iron deficiency anemia, unspecified (4) Asthma Current Visit: Yes Status: Chronic Qualifiers: Asthma severity: mild Asthma persistence: intermittent Asthma complication type: unspecified Qualified Code(s): J45.20 - Mild intermittent asthma, uncomplicated (5) Opioid dependence on agonist therapy Current Visit: Yes Status: Chronic Comment: ON VIP MMTP (6) Burning with urination Current Visit: Yes Status: Acute Comment: for 2 weeks. (7) Bradycardia Current Visit: Yes Status: Chronic Cleared for Admission [facility] - Detox or Rehab Claeared for Rehab Admission: Yes Breathalyzer - Breathalyzer Breathalyzer: 0 POC Urine test - Test device test lot number: [id number] Expiration date: 01/17/20 - Control test control: Yes - Result Urine Test Results: Negative - NO line present Urine Drug Screen - Test Device Lot number: [id number] Expiration date: 05/16/20 - Control Is test valid?: Yes - Results Drug screen NEGATIVE: No Urine drug screen results: MONIKA-Cocaine, MTD-Methadone, BZO-Benzodiazepines Inpatient Rehab Admission - Rehab Decision to Admit Inpatient rehab admission?: Yes - Initial Determination Are CD services needed?: Yes Free of communicable disease: Yes Not in need of hospitalization: Yes - Rehab Admission Criteria Previous failed treatment: Yes Poor recovery environment: Yes Comorbidities: Yes Lacks judgement: No Patient is meeting Inpatient Rehab admission criteria:: Yes
[2018-09-11] MEDS ORDERED: MAGNESIUM CITRATE 300 ML BOTTLE PO PRN (17:46)
[2018-09-11] MEDS ORDERED: ACETAMINOPHEN 325 MG TABLET (FP) PO PRN (17:46)
[2018-09-11] MEDS ORDERED: MENTHOL/PHENOL 1 EACH UD MM PRN (17:46)
[2018-09-11] MEDS ORDERED: MAG HYDROX/AL HYDROX/SIMETH 30 ML UNIT-DOSE CUP PO PRN (17:46)
[2018-09-11] MEDS ORDERED: guaiFENesin 200 MG/10 ML 10 ML UNIT-DOSE CUPS PO PRN (17:46)
[2018-09-11] MEDS ORDERED: hydrOXYzine PAMOATE 50 MG CAPSULE (FP) PO PRN (17:46)
[2018-09-11] MEDS ORDERED: P-EPHED 60MG/TRIPROLIDI 2.5MG TABLET PO PRN (17:46)
[2018-09-11] MEDS ORDERED: MAGNESIUM HYDROX 2400MG/30ML ORAL SUSPENSION 30 ML CUP PO PRN (17:46)
[2018-09-11] MEDS ORDERED: LOPERAMIDE HCL 2 MG CAPSULE PO PRN (17:46)
[2018-09-11] MEDS ORDERED: IBUPROFEN 400 MG TABLET (FP) PO PRN (17:46)
[2018-09-11] MEDS ORDERED: ALBUTEROL SO4 0.083% IH SOL 2.5 MG/3 ML VIAL.NEB. NEB PRN (17:48)
[2018-09-11] MEDS ORDERED: clonazePAM 2 MG TABLET PO PRN (17:48)
[2018-09-11] MEDS: THIAMINE HCL 100 MG TABLET (FP) PO SCH (21:29)
[2018-09-11] MEDS: FERROUS SO4 325 MG TABLET (FP) PO SCH (21:29)
[2018-09-11] MEDS ORDERED: MELATONIN 5 MG TABLETS PO PRN (22:00)
[2018-09-11 22:25] LABS: URINE APPEARANCE TURBID; URINE BILIRUBIN NEGATIVE (NEGATIVE); URINE COLOR YELLOW; URINE GLUCOSE (UA) NEGATIVE (NEGATIVE); URINE KETONE NEGATIVE (NEGATIVE); URINE LEUK ESTERASE NEGATIVE (NEGATIVE); URINE NITRITE NEGATIVE (NEGATIVE); URINE PROTEIN NEGATIVE (NEGATIVE)
[2018-09-12] MEDS: FERROUS SO4 325 MG TABLET (FP) PO SCH ×3 (08:13→17:30)
[2018-09-12] MEDS ORDERED: METHADONE HCL 10 MG TABLET PO ONE (09:32)
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
[2018-09-12] MEDS ORDERED: METHADONE PO ONE (10:00)
[2018-09-12] MEDS ORDERED: METHADONE 80 MG, METHADONE 5 MG PO ONE (10:00)
[2018-09-12] MEDS: PRENATAL VITAMINS W/ FOLIC ACID TABLET (FP) PO SCH (10:04)
[2018-09-12] MEDS ORDERED: METHADONE HCL 5 MG TABLET ONE (10:05)
[2018-09-12] MEDS ORDERED: METHADONE HCL 40 MG DISPERSABLE TABLET ONE (10:06)
[2018-09-12] MEDS: clonazePAM 0.5 MG TABLET PO PRN ×2 (11:12→21:37)
--- NOTE | 2018-09-12 13:42 | EKG ---
Test Reason : Blood Pressure : / mmHG Vent. Rate : 059 BPM Atrial Rate : 059 BPM P-R Int : 162 ms QRS Dur : 076 ms QT Int : 474 ms P-R-T Axes : 052 016 -15 degrees QTc Int : 469 ms SINUS BRADYCARDIA NONSPECIFIC T WAVE ABNORMALITY ABNORMAL ECG NO PREVIOUS ECGS AVAILABLE Confirmed by BEE LINDER, MARK ([id number]) on 09/12/2018 1:41:48 PM Referred By: DEMARCO HANKINS Confirmed By:MARK GAMBOA MD
[2018-09-12] MEDS: THIAMINE HCL 100 MG TABLET (FP) PO SCH (21:36)
[2018-09-13] MEDS ORDERED: METHADONE 80 MG, METHADONE 5 MG PO SCH (06:00)
[2018-09-13] MEDS ORDERED: METHADONE HCL 10 MG TABLET PO SCH (06:00)
[2018-09-13] MEDS ORDERED: METHADONE HCL 40 MG DISPERSABLE TABLET ONE (06:25)
[2018-09-13] MEDS ORDERED: METHADONE HCL 5 MG TABLET ONE (06:25)
[2018-09-13 07:00] VITALS: BP 107/70; PULSE 68; TEMP 97.8
[2018-09-13] MEDS: PRENATAL VITAMINS W/ FOLIC ACID TABLET (FP) PO SCH (09:49)
[2018-09-13] MEDS: FERROUS SO4 325 MG TABLET (FP) PO SCH (09:50)
[2018-09-13] MEDS: clonazePAM 0.5 MG TABLET PO PRN (09:51)
--- NOTE | 2018-09-13 11:17 | PN ---
[facility] Progress Note Note: Pt is leaving AMA today. Pt was admitted 2 days ago for rehab from xanax and cocaine use. Pt completed detox here. Pt is in a methadone program. Pt was asked to come to rehab by her Methadone progam. Pt states she is not ready to stop use of cocaine or xanax. Pt states she is having too many personal problems right now and needs to leave. Will f/u with methadone program today- they are open until 5pm. PCP-Dr. Sauer at the Methadone progrom. Pt does not need medications
[2018-09-13 11:51] LABS: HEMATOCRIT 38.5 % (32.4-45.2); HEMOGLOBIN 12.7 GM/dL (10.7-15.3); MCH 31.4 pg (25.7-33.7); MCHC 32.9 g/dl (32.0-36.0); MEAN CELL VOLUME 95.3 fl (80-96); MEAN PLT VOLUME 9.8 fl (7.5-11.1); PLATELET COUNT 313 K/MM3 (134-434); RBC 4.04 M/mm3 (3.60-5.2); RDW 13.1 % (11.6-15.6); WHITE BLOOD COUNT 5.3 K/mm3 (4.0-10.0)
[2018-09-13 11:52] LABS: ALBUMIN 3.3 g/dl (3.4-5.0); BILIRUBIN,TOTAL 0.6 mg/dL (0.2-1); BLOOD UREA NITROGEN 7.9 mg/dL (7-18); CALCIUM 8.8 mg/dL (8.5-10.1); POTASSIUM 4.6 mmol/L (3.5-5.1); TOT PROT 6.3 g/dl (6.4-8.2)
== END 2018-09-13 11:35 | disposition home or self-care (01) | DRG 772 ==
LOC: YASAS 11:55 → Y3E 17:53
PROVIDERS: ADMIT Neuromusculoskeletal Medicine & OMM; ATTEND Neuromusculoskeletal Medicine & OMM
PROC: HZ41ZZZ Group Counseling for Substance Abuse Treatment, Behavioral (ICD-10-PCS; principal; 2018-09-11)
DX: F13.20 Sedative, hypnotic or anxiolytic dependence, uncomplicated (principal); F14.20 Cocaine dependence, uncomplicated; F11.20 Opioid dependence, uncomplicated; F19.280 Other psychoactive substance dependence with psychoactive substance-induced anxiety disorder; D64.9 Anemia, unspecified; J45.909 Unspecified asthma, uncomplicated; R00.1 Bradycardia, unspecified; R30.0 Dysuria; Z86.69 Personal history of other diseases of the nervous system and sense organs
CPT/HCPCS: 36415; 80053; 81003; 81025; 85027; 93005; 93010

== ENCOUNTER 2020-01-05 11:30 | Inpatient (IN) | payer OTHER ==
--- OUTSIDE RECORDS SUMMARY | 2020-01-05 11:39 | XMS ---
:1970 Author Organization [facility] Support Name Relationship Address Phone UE Unavailable Unavailable Unavailable PEPE REBOLLEDO [address] [place] [address] ELROY RAMIREZ [place], [place] Re-disclosure Warning The records that you are about to access may contain information from federally- assisted alcohol or drug abuse programs. If such information is present, then the following federally mandated warning applies: This information has been disclosed to you from records protected by federal confidentiality rules (42 CFR part 2). The federal rules prohibit you from making any further disclosure of this information unless further disclosure is expressly permitted by the written consent of the person to whom it pertains or as otherwise permitted by 42 CFR part 2. A general authorization for the release of medical or other information is NOT sufficient for this purpose. The Federal rules restrict any use of the information to criminally investigate or prosecute any alcohol or drug abuse patient.The records that you are about to access may contain highly sensitive health information, the redisclosure of which is protected by Article 27-F of the [facility] Public Health law. If you continue you may haveaccess to information: Regarding HIV / AIDS; Provided by facilities licensed or operated by the [facility] Office of Mental Health; or Provided by the [facility] Office for People With Developmental Disabilities. If such information is present, then the following [facility] mandated warning applies: This information has been disclosed to you from confidential records which are protected by state law. State law prohibits you from making any further disclosure of this information without the specific written consent of the person to whom it pertains, or as otherwise permitted by law. Any unauthorized further disclosure in violation of state law may result in a fine or longterm sentence or both. A general authorization for the release of medical or other information is NOT sufficient authorization for further disclosure. Medications Medication Brand Start Product Dose Route Administrative Pharmacy St atus Indications Reaction Description Data Name Date Form Instructions Instructions Source(s) gabapentin Gabape 10/14/ ORAL complet Sa int 100 MG Oral ntin - 2018 ed [facility] ts Capsule 100 MG 12:00: Hospital ORAL 00 AM Capsul EDT e Insurance Providers Payer name Policy type Policy ID Covered Covered libertarian's Policy P agus / Coverage libertarian ID relationship to Leal Inf ormation type leal [employer] MEDICAID [id number] SP [id number] [employer] PLAN SELF PAY 0000 Self 0000 MEDICAID INP [id number] Self [id number] E REHAB [facility] [id number] Self [id number] METROPLUS/CELESTINO CON [place] [id number] SP [id number] METROPLUS Results ID Date Data Source [id number] 07/22/2019 01:05:00 PM EDT [facility] Name Value Range Interpretation Description Data Sup porting Code Source(s) Document(s ) SARS [facility] CORONAVIRUS 2 RNA This lab was ordered by Eudard mcgrath and reported by [facility]. ID Date Data Source [id number] 06/16/2019 12:59:00 PM EDT [facility] Name Value Range Interpretation Code Description Data Komal rce(s) Supporting Document(s ) SARS Cov2 [facility] RNA This lab was ordered by SCOTTY Kebede and r eported by [facility]. ID Date Data Source [id number] 06/11/2019 05:05:00 PM EDT [facility] Name Value Range Interpretation Code Description Data Komal rce(s) Supporting Document(s ) SARS-CoV-2 [facility] RNA XXX [facility] KIMBERLEY+probe This lab was ordered by [facility] a nd reported by [facility]. ID Date Data Source [id number] 06/09/2019 04:00:00 PM EDT [facility] Name Value Range Interpretation Code Description Data Komal rce(s) Supporting Document(s ) 2019-nCoV [facility] RNA XXX KIMBERLEY+probe- Imp This lab was ordered by [address] [place] [address] ([facility]) and reported by [facility]. Procedure
--- NOTE | 2020-01-05 11:53 | BHS.RME ---
2019 N Coronavirus Screen - COVID-19 Screening Questions Dx of COVID-19 or had a positive test in the last 4 weeks?: No Contact with known/suspected COVID patient in last 14 days?: No Any of these symptoms or contact with someone who has?: None Traveled domestically/internationally in the last 14 days?: No Screen score: 0 Screen result: Further Evaluation Substance Use & Tx History - Substance Use History Alcohol Substance amount: 2 six packs Frequency of use: Daily Substance route: Oral Date of Last Use: 01/04/20 (started age 17) Cocaine- Powder Substance amount: $20 Frequency of use: Daily Substance route: Inhalation (ex: sniffing or snorting) Date of Last Use: 01/04/20 (started age 29) - Last Treatment Date of last treatment: 09/03-09/13/18 detox and then left 2 days after rehab Treatment type: Substance Use Disorder (YUMIKO) Where was last treatment: Rehab Physical/Psych/Mental Status - Behavior General Behavior: Increased activity (restlessness, agitation) Eye Contact: Normal - Cooperativeness Cooperativeness: Cooperative - Thinking Thought Processes: Tight, Logical, Goal Directed - Physical Health Problems Is patient presently having any pain?: No Does patient presently have any injuries (include location): No Does patient currently have a fever: No Is patient : No CIWA Nausea/Vomitin-No Nausea/No Vomiting Muscle Tremors: 2 Anxiety: 5 Agitation: 4-Moderately Restless Paroxysmal Sweats: 3 Orientation: 1-Uncertain about Date Tacttile Disturbances: 0-None Auditory Disturbances: 0-None Visual Disturbances: 0-None Headache: 2-Mild CIWA-Ar Total Score: 17
[2020-01-05 12:15] VITALS: BMI 32.4
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
[2020-01-05] MEDS ORDERED: MENTHOL/PHENOL 1 EACH UD MM PRN (12:56)
[2020-01-05] MEDS ORDERED: ONDANSETRON *ODT* 4 MG TABLET SL PRN (12:56)
[2020-01-05] MEDS ORDERED: BISMUTH SUBSALICYLATE 262 MG/15 ML BTL PO PRN (12:56)
[2020-01-05] MEDS ORDERED: MAG HYDROX/AL HYDROX/SIMETH 30 ML UNIT-DOSE CUP PO PRN (12:56)
[2020-01-05] MEDS ORDERED: NICOTINE POLACRILEX 2 MG GUM BUC PRN (12:56)
[2020-01-05] MEDS ORDERED: MAGNESIUM HYDROX 2400MG/30ML ORAL SUSPENSION 30 ML CUP PO PRN (12:56)
[2020-01-05] MEDS ORDERED: ACETAMINOPHEN 325 MG TABLET (FP) PO PRN ×2 (12:56)
[2020-01-05] MEDS ORDERED: MAGNESIUM CITRATE 300 ML BOTTLE PO PRN (12:56)
[2020-01-05] MEDS ORDERED: METHOCARBAMOL 500 MG TABLET PO PRN (12:56)
[2020-01-05] MEDS ORDERED: ALBUTEROL SO4 HFA INHALER IH PRN (12:58)
--- OUTSIDE RECORDS SUMMARY | 2020-01-05 13:31 | XMS ---
:1970 Author Organization [facility] Support Name Relationship Address Phone UE Unavailable Unavailable Unavailable PEPE REBOLLEDO [address] [place] [address] ELROY RAMIREZ [place], [place] Re-disclosure Warning The records that [...] is protected by Article 27-F of the [facility] Public Health law. If you continue you may haveaccess to information: Regarding HIV / AIDS; Provided by facilities licensed or operated by the [facility] Office of Mental Health; or Provided by the [facility] Office for People With Developmental Disabilities. If such information is present, then the following [facility] mandated warning applies: This information has [...] law may result in a fine or care home sentence or both. A general authorization for [...] name Policy type Policy ID Covered Covered alliance party's Policy P agus / Coverage alliance party ID relationship to Leal Inf ormation type leal [employer] MEDICAID [id number] SP [id number] COMM PLAN SELF PAY 0000 Self 0000 MEDICAID INP [id number] Self [id number] E REHAB [facility] [id number] Self [id number] [facility]US/CELESTINO [place] [id number] SP [id number] METROPLUS Results ID Date Data Source [id number] 07/22/2019 01:05:00 PM EDT [facility] Name Value Range Interpretation Description Data Sup porting Code Source(s) Document(s ) SARS [facility] CORONAVIRUS 2 RNA This lab was ordered by Eduard mcgrath and reported by [facility]. ID Date Data Source [id number] 06/16/2019 12:59:00 PM EDT [facility] Name Value Range Interpretation Code Description Data Komal rce(s) Supporting Document(s ) SARS Cov2 [facility] RNA This lab was ordered by SCOTTY Kebede and r eported by [facility]. ID Date Data Source [id number] 06/11/2019 05:05:00 PM EDT [facility] Name Value Range Interpretation Code Description Data Komal rce(s) Supporting Document(s ) SARS-CoV-2 [facility] RNA XXX [facility] KIMBERLEY+probe This lab was ordered by [facility] a nd reported by [facility]. ID Date Data Source [id number] 06/09/2019 04:00:00 PM EDT [facility] Name Value Range Interpretation Code Description Data Komal rce(s) Supporting Document(s ) 2019-nCoV [facility] RNA XXX [facility]+probe- Imp This lab was ordered by [address] [place] [address] ([facility]) and reported by [id number]. Procedure
[2020-01-05] MEDS ORDERED: hydrOXYzine PAMOATE 25 MG CAPSULE (FP) PO SCH (14:00)
[2020-01-05] MEDS: PRENATAL VITAMINS W/ FOLIC ACID TABLET (FP) PO SCH (14:20)
[2020-01-05] MEDS: chlordiazePOXIDE HCL 25 MG CAPSULE PO SCH ×3 (14:24→22:19)
[2020-01-05] MEDS: NICOTINE 7 MG/24 HOURS TOPICAL PATCH TD SCH ×2 (14:25→14:35)
[2020-01-05 14:39] LABS: HEMATOCRIT 32.2 % (32.4-45.2); HEMOGLOBIN 10.3 GM/dL (10.7-15.3); MCH 27.4 pg (25.7-33.7); MEAN CELL VOLUME 85.5 fl (80-96); MEAN PLT VOLUME 9.2 fl (7.5-11.1); PLATELET COUNT 238 K/MM3 (134-434); POTASSIUM 4.2 mmol/L (3.5-5.1); RBC 3.77 M/mm3 (3.60-5.2); RDW 15.5 % (11.6-15.6); WHITE BLOOD COUNT 3.9 K/mm3 (4.0-10.0)
[2020-01-05 14:41] LABS: BLOOD UREA NITROGEN 5.6 mg/dL (7-18)
[2020-01-05 14:42] LABS: ALBUMIN 3.2 g/dl (3.4-5.0)
[2020-01-05 14:45] LABS: CREATININE 0.8 mg/dL (0.55-1.3)
[2020-01-05 14:47] LABS: BILIRUBIN,TOTAL 0.4 mg/dL (0.2-1); TOT PROT 6.6 g/dl (6.4-8.2)
[2020-01-05] MEDS: IBUPROFEN 400 MG TABLET (FP) PO PRN (18:43)
[2020-01-05] MEDS: chlordiazePOXIDE HCL 25 MG CAPSULE PO PRN (18:44)
[2020-01-05] MEDS: MELATONIN 5 MG TABLETS PO SCH (22:17)
[2020-01-05] MEDS: THIAMINE HCL 100 MG TABLET (FP) PO SCH (22:17)
[2020-01-06] MEDS: chlordiazePOXIDE HCL 25 MG CAPSULE PO SCH ×4 (06:19→22:19)
[2020-01-06] MEDS: chlordiazePOXIDE HCL 25 MG CAPSULE PO PRN (06:23)
--- NOTE | 2020-01-06 08:52 | CONSULT ---
S Psychiatric Consult - Data Date of interview: 01/06/20 Admission source: Self-referred
[2020-01-06] MEDS ORDERED: METHADONE HCL 10 MG TABLET PO ONE (09:00)
[2020-01-06] MEDS ORDERED: METHADONE 80 MG, METHADONE 20 MG PO ONE (09:11)
[2020-01-06] MEDS ORDERED: METHADONE HCL 10 MG TABLET ONE (09:27)
[2020-01-06] MEDS ORDERED: METHADONE HCL 40 MG DISPERSABLE TABLET ONE (09:28)
[2020-01-06] MEDS: PRENATAL VITAMINS W/ FOLIC ACID TABLET (FP) PO SCH (09:33)
[2020-01-06] MEDS: NICOTINE 7 MG/24 HOURS TOPICAL PATCH TD SCH (09:33)
[2020-01-06] MEDS: hydrOXYzine PAMOATE 25 MG CAPSULE (FP) PO PRN ×2 (09:34→20:52)
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
--- NOTE | 2020-01-06 10:21 | PN ---
S CIWA - CIWA Score Nausea/Vomitin-No Nausea/No Vomiting Muscle Tremors: 4-Moderate,w/Arms Extend Anxiety: 4-Mod. Anxious/Guarded Agitation: 4-Moderately Restless Paroxysmal Sweats: 3 Orientation: 0-Oriented Tacttile Disturbances: 0-None Auditory Disturbances: 0-None Visual Disturbances: 0-None Headache: 0-None Present CIWA-Ar Total Score: 15 BHS Progress Note (SOAP) Subjective: anxiety shakes interrupted sleep agitation body aches Objective: 01/06/20 10:21 Vital Signs Temperature 97.1 F L 01/06/20 08:47 Pulse Rate 72 01/06/20 08:47 Respiratory Rate 16 01/06/20 08:47 Blood Pressure 119/79 01/06/20 08:47 O2 Sat by Pulse Oximetry (%) 94 L 01/06/20 08:47 Laboratory Tests 01/05/20 01/05/20 01/05/20 12:59 12:59 12:59 WBC 3.9 L RBC 3.77 Hgb 10.3 L Hct 32.2 L D MCV 85.5 MCH 27.4 D MCHC 32.0 RDW 15.5 D Plt Count 238 D MPV 9.2 Sodium 136 Potassium 4.2 Chloride 101 Carbon Dioxide 29 Anion Gap 6 L BUN 5.6 L Creatinine 0.8 Est GFR (CKD-EPI)AfAm 99.63 Est GFR (CKD-EPI)NonAf 85.96 Random Glucose 79 Calcium 9.0 Total Bilirubin 0.4 AST 11 L ALT 14 Alkaline Phosphatase 59 Total Protein 6.6 Albumin 3.2 L Syphilis Serology COVID-19 ([facility]LEY) HIV Ag/Ab Combo Qual Negative 01/05/20 01/05/20 12:59 13:25 WBC RBC Hgb Hct MCV MCH MCHC RDW Plt Count MPV Sodium Potassium Chloride Carbon Dioxide Anion Gap BUN Creatinine Est GFR (CKD-EPI)AfAm Est GFR (CKD-EPI)NonAf Random Glucose Calcium Total Bilirubin AST ALT Alkaline Phosphatase Total Protein Albumin Syphilis Serology Non-reactive COVID-19 ([facility]IMBERLEY) Not detected HIV Ag/Ab Combo Qual labs noted aaox3 ambulating no acute distress Assessment: 01/06/20 10:21 withdrawals Plan: continue detox with librium as ordered increase fluids
[2020-01-06] MEDS: FLUoxetine HCL 20 MG CAPSULE PO SCH (10:36)
[2020-01-06] MEDS: IBUPROFEN 400 MG TABLET (FP) PO PRN (10:38)
[2020-01-06] MEDS: MELATONIN 5 MG TABLETS PO SCH (22:18)
[2020-01-06] MEDS: SUVOREXANT 10 MG TABLET PO PRN (22:18)
[2020-01-06] MEDS: THIAMINE HCL 100 MG TABLET (FP) PO SCH (22:18)
[2020-01-07] MEDS ORDERED: METHADONE HCL 10 MG TABLET ONE (04:50)
[2020-01-07] MEDS ORDERED: METHADONE HCL 40 MG DISPERSABLE TABLET ONE (04:50)
[2020-01-07] MEDS ORDERED: chlordiazePOXIDE HCL 25 MG CAPSULE PO SCH (05:00)
[2020-01-07] MEDS: METHADONE 80 MG, METHADONE 20 MG PO SCH (05:54)
[2020-01-07] MEDS ORDERED: METHADONE HCL 40 MG DISPERSABLE TABLET PO SCH (06:00)
[2020-01-07] MEDS: FLUoxetine HCL 20 MG CAPSULE PO SCH (10:34)
[2020-01-07] MEDS: diazePAM 5 MG TABLET PO SCH ×3 (10:35→22:05)
[2020-01-07] MEDS: PRENATAL VITAMINS W/ FOLIC ACID TABLET (FP) PO SCH (10:36)
[2020-01-07] MEDS: NICOTINE 7 MG/24 HOURS TOPICAL PATCH TD SCH (10:36)
--- NOTE | 2020-01-07 11:33 | PN ---
S CIWA - CIWA Score Nausea/Vomitin-No Nausea/No Vomiting Muscle Tremors: 3 Anxiety: 1-Mildly Anxious Agitation: 2 Paroxysmal Sweats: 2 Orientation: 0-Oriented Tacttile Disturbances: 0-None Auditory Disturbances: 0-None Visual Disturbances: 0-None Headache: 0-None Present CIWA-Ar Total Score: 8 BHS Progress Note (SOAP) Subjective: dizzy sweats body aches the librium is too strong and valium helps my withdrawals and with my anxiety. Objective: 01/07/20 11:32 Vital Signs Temperature 97.8 F 01/07/20 08:49 Pulse Rate 70 01/07/20 08:49 Respiratory Rate 20 01/07/20 08:49 Blood Pressure 100/66 01/07/20 08:49 O2 Sat by Pulse Oximetry (%) 93 L 01/07/20 08:49 Laboratory Tests 01/05/20 01/05/20 01/05/20 12:15 12:59 12:59 WBC 3.9 L RBC 3.77 Hgb 10.3 L Hct 32.2 L D MCV 85.5 MCH 27.4 D MCHC 32.0 RDW 15.5 D Plt Count 238 D MPV 9.2 Sodium Potassium Chloride Carbon Dioxide Anion Gap BUN Creatinine Est GFR (CKD-EPI)AfAm Est GFR (CKD-EPI)NonAf Random Glucose Calcium Total Bilirubin AST ALT Alkaline Phosphatase Total Protein Albumin POC Urine HCG, Qual Negative Syphilis Serology COVID-19 ([facility]IMBERLEY) HIV Ag/Ab Combo Qual Negative 01/05/20 01/05/20 01/05/20 12:59 12:59 13:25 WBC RBC Hgb Hct MCV MCH MCHC RDW Plt Count MPV Sodium 136 Potassium 4.2 Chloride 101 Carbon Dioxide 29 Anion Gap 6 L BUN 5.6 L Creatinine 0.8 Est GFR (CKD-EPI)AfAm 99.63 Est GFR (CKD-EPI)NonAf 85.96 Random Glucose 79 Calcium 9.0 Total Bilirubin 0.4 AST 11 L ALT 14 Alkaline Phosphatase 59 Total Protein 6.6 Albumin 3.2 L POC Urine HCG, Qual Syphilis Serology Non-reactive COVID-19 ([facility]LEY) Not detected HIV Ag/Ab Combo Qual labs noted aaox3 sitting on edge of bed no acute distress Assessment: 01/07/20 11:32 withdrawals Plan: librium d/c valium taper ordered as per pt request increase fluids
[2020-01-07] MEDS: diazePAM 5 MG TABLET PO PRN (13:41)
[2020-01-07] MEDS: THIAMINE HCL 100 MG TABLET (FP) PO SCH (22:05)
[2020-01-07] MEDS: MELATONIN 5 MG TABLETS PO SCH (22:05)
[2020-01-07] MEDS: IBUPROFEN 400 MG TABLET (FP) PO PRN (22:06)
[2020-01-08] MEDS ORDERED: chlordiazePOXIDE HCL 10 MG CAPSULE PO PRN
[2020-01-08] MEDS ORDERED: METHADONE HCL 10 MG TABLET ONE (04:16)
[2020-01-08] MEDS ORDERED: METHADONE HCL 40 MG DISPERSABLE TABLET ONE (04:17)
[2020-01-08] MEDS ORDERED: chlordiazePOXIDE HCL 10 MG CAPSULE PO SCH (05:00)
[2020-01-08] MEDS: diazePAM 5 MG TABLET PO SCH ×2 (05:56→10:33)
[2020-01-08] MEDS: METHADONE 80 MG, METHADONE 20 MG PO SCH (05:56)
[2020-01-08] MEDS: IBUPROFEN 400 MG TABLET (FP) PO PRN ×2 (05:57→18:51)
[2020-01-08] MEDS: FLUoxetine HCL 20 MG CAPSULE PO SCH (10:33)
[2020-01-08] MEDS: PRENATAL VITAMINS W/ FOLIC ACID TABLET (FP) PO SCH (10:33)
[2020-01-08] MEDS: NICOTINE 7 MG/24 HOURS TOPICAL PATCH TD SCH (10:33)
--- NOTE | 2020-01-08 13:58 | PN ---
S CIWA - CIWA Score Nausea/Vomitin-No Nausea/No Vomiting Muscle Tremors: 2 Anxiety: 1-Mildly Anxious Agitation: 2 Paroxysmal Sweats: 1-Minimal Palms Moist Orientation: 0-Oriented Tacttile Disturbances: 0-None Auditory Disturbances: 0-None Visual Disturbances: 0-None Headache: 0-None Present CIWA-Ar Total Score: 6 BHS Progress Note (SOAP) Subjective: tired sweats interrupted sleep Objective: 01/08/20 13:57 Vital Signs Temperature 97.4 F L 01/08/20 08:33 Pulse Rate 75 01/08/20 08:33 Respiratory Rate 16 01/08/20 08:33 Blood Pressure 95/74 01/08/20 08:33 O2 Sat by Pulse Oximetry (%) 98 01/08/20 06:15 Laboratory Tests 01/05/20 01/05/20 01/05/20 12:15 12:59 12:59 WBC 3.9 L RBC 3.77 Hgb 10.3 L Hct 32.2 L D MCV 85.5 MCH 27.4 D MCHC 32.0 RDW 15.5 D Plt Count 238 D MPV 9.2 Sodium Potassium Chloride Carbon Dioxide Anion Gap BUN Creatinine Est GFR (CKD-EPI)AfAm Est GFR (CKD-EPI)NonAf Random Glucose Calcium Total Bilirubin AST ALT Alkaline Phosphatase Total Protein Albumin POC Urine HCG, Qual Negative Syphilis Serology COVID-19 ([facility]) HIV Ag/Ab Combo Qual Negative 01/05/20 01/05/20 01/05/20 12:59 12:59 13:25 WBC RBC Hgb Hct MCV MCH MCHC RDW Plt Count MPV Sodium 136 Potassium 4.2 Chloride 101 Carbon Dioxide 29 Anion Gap 6 L BUN 5.6 L Creatinine 0.8 Est GFR (CKD-EPI)AfAm 99.63 Est GFR (CKD-EPI)NonAf 85.96 Random Glucose 79 Calcium 9.0 Total Bilirubin 0.4 AST 11 L ALT 14 Alkaline Phosphatase 59 Total Protein 6.6 Albumin 3.2 L POC Urine HCG, Qual Syphilis Serology Non-reactive COVID-19 ([facility]) Not detected HIV Ag/Ab Combo Qual aaox3 lying in bed no acute distress Assessment: 01/08/20 13:57 withdrawals Plan: continue detox
[2020-01-08] MEDS: diazePAM 5 MG TABLET PO PRN ×2 (14:30→19:34)
[2020-01-08] MEDS: SUVOREXANT 10 MG TABLET PO PRN (22:21)
[2020-01-08] MEDS: THIAMINE HCL 100 MG TABLET (FP) PO SCH (22:22)
[2020-01-08] MEDS: MELATONIN 5 MG TABLETS PO SCH (22:22)
[2020-01-09] MEDS ORDERED: METHADONE HCL 10 MG TABLET ONE (03:53)
[2020-01-09] MEDS ORDERED: METHADONE HCL 40 MG DISPERSABLE TABLET ONE (03:54)
[2020-01-09] MEDS ORDERED: chlordiazePOXIDE HCL 10 MG CAPSULE PO SCH (05:00)
[2020-01-09] MEDS: diazePAM 5 MG TABLET PO SCH ×3 (06:16→21:19)
[2020-01-09] MEDS: METHADONE 80 MG, METHADONE 20 MG PO SCH (06:17)
[2020-01-09] MEDS: FLUoxetine HCL 20 MG CAPSULE PO SCH (10:27)
[2020-01-09] MEDS: PRENATAL VITAMINS W/ FOLIC ACID TABLET (FP) PO SCH (10:27)
--- NOTE | 2020-01-09 11:24 | PN ---
[facility] CIWA - CIWA Score Nausea/Vomitin-No Nausea/No Vomiting Muscle Tremors: 1-None Visible, but [place] Anxiety: 1-Mildly Anxious Agitation: 1-Slight > Activity Paroxysmal Sweats: 1-Minimal Palms Moist Orientation: 0-Oriented Tacttile Disturbances: 0-None Auditory Disturbances: 0-None Visual Disturbances: 0-None Headache: 0-None Present CIWA-Ar Total Score: 4 BHS Progress Note (SOAP) Subjective: anxiety Objective: 01/09/20 11:24 Vital Signs Temperature 97.5 F L 01/09/20 09:22 Pulse Rate 77 01/09/20 09:22 Respiratory Rate 18 01/09/20 09:22 Blood Pressure 105/69 01/09/20 09:22 O2 Sat by Pulse Oximetry (%) 98 01/09/20 09:22 aaox3 ambulating no acute distress Assessment: 01/09/20 11:24 withdrawals Plan: continue detox d/c in am
[2020-01-09] MEDS: NICOTINE 7 MG/24 HOURS TOPICAL PATCH TD SCH (11:29)
[2020-01-09] MEDS: hydrOXYzine PAMOATE 25 MG CAPSULE (FP) PO PRN (17:35)
[2020-01-09] MEDS: IBUPROFEN 400 MG TABLET (FP) PO PRN (17:36)
[2020-01-09] MEDS: THIAMINE HCL 100 MG TABLET (FP) PO SCH (21:18)
[2020-01-09] MEDS: MELATONIN 5 MG TABLETS PO SCH (21:19)
[2020-01-10] MEDS ORDERED: chlordiazePOXIDE HCL 10 MG CAPSULE PO ONE (05:00)
[2020-01-10] MEDS ORDERED: METHADONE HCL 10 MG TABLET ONE (05:07)
[2020-01-10] MEDS ORDERED: METHADONE HCL 40 MG DISPERSABLE TABLET ONE (05:07)
[2020-01-10] MEDS ORDERED: diazePAM 5 MG TABLET PO ONE (06:00)
[2020-01-10] MEDS: METHADONE 80 MG, METHADONE 20 MG PO SCH (06:17)
[2020-01-10] MEDS: IBUPROFEN 400 MG TABLET (FP) PO PRN (06:18)
[2020-01-10] MEDS: FLUoxetine HCL 20 MG CAPSULE PO SCH (09:13)
[2020-01-10] MEDS: PRENATAL VITAMINS W/ FOLIC ACID TABLET (FP) PO SCH (09:13)
[2020-01-10 09:22] VITALS: BP 103/72; PULSE 92; TEMP 97.1
[2020-01-10] MEDS: NICOTINE 7 MG/24 HOURS TOPICAL PATCH TD SCH (10:53)
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
== END 2020-01-10 11:25 | disposition other institution (70) | DRG 773 ==
LOC: YASAS 11:30 → Y6N 13:20
PROVIDERS: ADMIT Allergy & Immunology; ATTEND Allergy & Immunology
PROC: HZ2ZZZZ Detoxification Services for Substance Abuse Treatment (ICD-10-PCS; principal; 2020-01-05)
DX: F10.230 Alcohol dependence with withdrawal, uncomplicated (principal); F11.20 Opioid dependence, uncomplicated; F14.20 Cocaine dependence, uncomplicated; F13.20 Sedative, hypnotic or anxiolytic dependence, uncomplicated; F19.282 Other psychoactive substance dependence with psychoactive substance-induced sleep disorder; F19.280 Other psychoactive substance dependence with psychoactive substance-induced anxiety disorder; F32.9 Major depressive disorder, single episode, unspecified; F41.9 Anxiety disorder, unspecified; D50.9 Iron deficiency anemia, unspecified; J45.20 Mild intermittent asthma, uncomplicated; G43.909 Migraine, unspecified, not intractable, without status migrainosus; G40.909 Epilepsy, unspecified, not intractable, without status epilepticus; M54.5 Low back pain; G89.29 Other chronic pain; Z98.51 Tubal ligation status
CPT/HCPCS: 36415; 80053; 81025; 85027; 86780; 87389; C9803; Q0162; U0003

== ENCOUNTER 2020-12-22 13:55 | Inpatient (IN) | payer OTHER ==
[2020-12-22 15:55] VITALS: BMI 27.4
[2020-12-22] MEDS ORDERED: BISMUTH SUBSALICYLATE 524 MG/30 ML PO PRN (17:28)
[2020-12-22] MEDS ORDERED: MAGNESIUM CITRATE 300 ML BOTTLE PO PRN (17:28)
[2020-12-22] MEDS ORDERED: NALOXONE (NARCAN) HCL 4 MG/0.1 ML SPRAY NS PRN (17:28)
[2020-12-22] MEDS ORDERED: METHOCARBAMOL 500 MG TABLET PO PRN (17:28)
[2020-12-22] MEDS ORDERED: ACETAMINOPHEN 325 MG TABLET (FP) PO PRN ×2 (17:28)
[2020-12-22] MEDS ORDERED: MENTHOL/PHENOL 1 EACH UD MM PRN (17:28)
[2020-12-22] MEDS ORDERED: NICOTINE 10 MG CARTRIDGE (INHALER) IH PRN (17:28)
[2020-12-22] MEDS ORDERED: MAGNESIUM HYDROX 2400MG/30ML ORAL SUSPENSION 30 ML CUP PO PRN (17:28)
[2020-12-22] MEDS ORDERED: ONDANSETRON *ODT* 4 MG TABLET SL PRN (17:28)
[2020-12-22] MEDS ORDERED: MAG HYDROX/AL HYDROX/SIMETH 30 ML UNIT-DOSE CUP PO PRN (17:28)
[2020-12-22] MEDS ORDERED: IBUPROFEN 400 MG TABLET (FP) PO PRN (17:28)
[2020-12-22] MEDS: hydrOXYzine PAMOATE 25 MG CAPSULE (FP) PO SCH ×2 (20:55→22:52)
[2020-12-22] MEDS: diazePAM 5 MG TABLET PO SCH ×2 (20:55→22:52)
[2020-12-22] MEDS: MELATONIN 5 MG TABLETS PO SCH (22:51)
[2020-12-22] MEDS: THIAMINE HCL 100 MG TABLET (FP) PO SCH (22:52)
[2020-12-23] MEDS: hydrOXYzine PAMOATE 25 MG CAPSULE (FP) PO SCH ×5 (05:30→23:27)
[2020-12-23] MEDS: diazePAM 5 MG TABLET PO SCH ×4 (05:31→23:27)
[2020-12-23] MEDS ORDERED: methaDONE HCL 40 MG DISPERSABLE TABLET PO ONE (09:30)
[2020-12-23 10:22] LABS: HEMATOCRIT 26.8 % (32.4-45.2); HEMOGLOBIN 8.5 GM/dL (10.7-15.3); MCH 24.2 pg (25.7-33.7); MCHC 31.9 g/dl (32.0-36.0); MEAN CELL VOLUME 75.8 fl (80-96); MEAN PLT VOLUME 8.2 fl (7.5-11.1); PLATELET COUNT 258 10^3/uL (134-434); RBC 3.53 M/mm3 (3.60-5.2); RDW 17.5 % (11.6-15.6); WHITE BLOOD COUNT 4.2 K/mm3 (4.0-10.0)
[2020-12-23 11:09] LABS: ALBUMIN 2.3 g/dl (3.4-5.0); CALCIUM 8.5 mg/dL (8.5-10.1)
[2020-12-23 11:12] LABS: CREATININE 0.8 mg/dL (0.55-1.3)
[2020-12-23 11:14] LABS: BILIRUBIN,TOTAL 0.4 mg/dL (0.2-1)
[2020-12-23 11:15] LABS: TOT PROT 5.8 g/dl (6.4-8.2)
[2020-12-23] MEDS: diazePAM 5 MG TABLET PO PRN (15:48)
[2020-12-23] MEDS: MELATONIN 5 MG TABLETS PO SCH (23:27)
[2020-12-23] MEDS: THIAMINE HCL 100 MG TABLET (FP) PO SCH (23:27)
[2020-12-24] MEDS: methaDONE HCL 40 MG DISPERSABLE TABLET PO SCH (05:51)
[2020-12-24] MEDS: diazePAM 5 MG TABLET PO SCH ×3 (05:52→22:35)
[2020-12-24] MEDS: hydrOXYzine PAMOATE 25 MG CAPSULE (FP) PO SCH ×5 (05:54→22:35)
[2020-12-24] MEDS: diazePAM 5 MG TABLET PO PRN ×2 (10:20→17:57)
[2020-12-24] MEDS: FERROUS SO4 325 MG TABLET (FP) PO SCH (15:30)
[2020-12-24] MEDS: MELATONIN 5 MG TABLETS PO SCH (22:35)
[2020-12-24] MEDS: THIAMINE HCL 100 MG TABLET (FP) PO SCH (22:35)
[2020-12-25] MEDS: methaDONE HCL 40 MG DISPERSABLE TABLET PO SCH (05:34)
[2020-12-25] MEDS: diazePAM 5 MG TABLET PO SCH ×2 (05:34→17:33)
[2020-12-25] MEDS: hydrOXYzine PAMOATE 25 MG CAPSULE (FP) PO SCH ×5 (05:34→22:36)
[2020-12-25] MEDS: FERROUS SO4 325 MG TABLET (FP) PO SCH (10:32)
[2020-12-25] MEDS: diazePAM 5 MG TABLET PO PRN ×2 (10:32→13:54)
[2020-12-25] MEDS: THIAMINE HCL 100 MG TABLET (FP) PO SCH (22:36)
[2020-12-25] MEDS: MELATONIN 5 MG TABLETS PO SCH (22:36)
[2020-12-26] MEDS: methaDONE HCL 40 MG DISPERSABLE TABLET PO SCH (05:50)
[2020-12-26] MEDS: hydrOXYzine PAMOATE 25 MG CAPSULE (FP) PO SCH ×5 (05:50→22:06)
[2020-12-26] MEDS ORDERED: diazePAM 5 MG TABLET PO ONE (06:00)
[2020-12-26] MEDS: FERROUS SO4 325 MG TABLET (FP) PO SCH (11:05)
[2020-12-26 20:45] VITALS: PULSE 69
[2020-12-26] MEDS: MELATONIN 5 MG TABLETS PO SCH (22:06)
[2020-12-26] MEDS: THIAMINE HCL 100 MG TABLET (FP) PO SCH (22:07)
[2020-12-27] MEDS: methaDONE HCL 40 MG DISPERSABLE TABLET PO SCH (06:16)
[2020-12-27] MEDS: hydrOXYzine PAMOATE 25 MG CAPSULE (FP) PO SCH (06:17)
[2020-12-27 07:21] VITALS: BP 109/64; TEMP 98.6
== END 2020-12-27 09:20 | disposition home or self-care (01) | DRG 773 ==
LOC: YASAS 13:55 → Y6N 18:51
PROVIDERS: ADMIT Allergy & Immunology; ATTEND Allergy & Immunology
PROC: HZ2ZZZZ Detoxification Services for Substance Abuse Treatment (ICD-10-PCS; principal; 2020-12-22)
DX: F13.230 Sedative, hypnotic or anxiolytic dependence with withdrawal, uncomplicated (principal); F11.20 Opioid dependence, uncomplicated; F14.20 Cocaine dependence, uncomplicated; F19.280 Other psychoactive substance dependence with psychoactive substance-induced anxiety disorder; F41.8 Other specified anxiety disorders; D50.9 Iron deficiency anemia, unspecified; G40.909 Epilepsy, unspecified, not intractable, without status epilepticus; J45.20 Mild intermittent asthma, uncomplicated; M54.50 Low back pain, unspecified; G89.29 Other chronic pain
CPT/HCPCS: 36415; 80053; 81025; 85027; 86780; C9803; U0003; U0005

== ENCOUNTER 2021-06-24 12:08 | Inpatient (IN) | payer OTHER ==
[2021-06-24] MEDS ORDERED: MAGNESIUM HYDROX 2400MG/30ML ORAL SUSPENSION 30 ML CUP PO PRN (12:35)
[2021-06-24] MEDS ORDERED: IBUPROFEN 400 MG TABLET (FP) PO PRN (12:35)
[2021-06-24] MEDS ORDERED: ONDANSETRON *ODT* 4 MG TABLET SL PRN (12:35)
[2021-06-24] MEDS ORDERED: MAG HYDROX/AL HYDROX/SIMETH 30 ML UNIT-DOSE CUP PO PRN (12:35)
[2021-06-24] MEDS ORDERED: METHOCARBAMOL 500 MG TABLET PO PRN (12:35)
[2021-06-24] MEDS ORDERED: DICYCLOMINE HCL 10 MG CAPSULE PO PRN (12:35)
[2021-06-24] MEDS ORDERED: LOPERAMIDE HCL 2 MG CAPSULE PO PRN (12:35)
[2021-06-24] MEDS ORDERED: ACETAMINOPHEN 325 MG TABLET (FP) PO PRN ×2 (12:35)
[2021-06-24] MEDS ORDERED: MAGNESIUM CITRATE 300 ML BOTTLE PO PRN (12:35)
[2021-06-24] MEDS ORDERED: BENZOCAINE/MENTHOL (CHLORASEPTIC ) LOZENGE MM PRN (12:35)
[2021-06-24] MEDS ORDERED: BISMUTH SUBSALICYLATE 262 MG/15 ML BTL PO PRN (12:35)
[2021-06-24 13:05] VITALS: BMI 34.7
[2021-06-24] MEDS: PRENATAL VITAMINS W/ FOLIC ACID TABLET (FP) PO SCH (16:01)
[2021-06-24] MEDS: hydrOXYzine PAMOATE 25 MG CAPSULE (FP) PO SCH ×3 (16:01→22:56)
[2021-06-24] MEDS: diazePAM 5 MG TABLET PO PRN (16:02)
[2021-06-24] MEDS ORDERED: ALBUTEROL SO4 HFA INHALER IH PRN (16:13)
[2021-06-24] MEDS ORDERED: NALOXONE (NARCAN) HCL 4 MG/0.1 ML SPRAY NS PRN (16:13)
[2021-06-24] MEDS: diazePAM 5 MG TABLET PO SCH ×2 (17:53→22:56)
[2021-06-24] MEDS: MELATONIN 5 MG TABLETS PO SCH (22:56)
[2021-06-24] MEDS: THIAMINE HCL 100 MG TABLET (FP) PO SCH (22:56)
[2021-06-25] MEDS: diazePAM 5 MG TABLET PO SCH ×4 (06:05→22:48)
[2021-06-25] MEDS: hydrOXYzine PAMOATE 25 MG CAPSULE (FP) PO SCH ×5 (06:06→22:48)
[2021-06-25] MEDS: FERROUS SO4 325 MG TABLET (FP) PO SCH (07:24)
[2021-06-25] MEDS ORDERED: methaDONE HCL 40 MG DISPERSABLE TABLET PO SCH (10:15)
[2021-06-25] MEDS: FLUoxetine HCL 20 MG CAPSULE PO SCH (10:30)
[2021-06-25] MEDS: PRENATAL VITAMINS W/ FOLIC ACID TABLET (FP) PO SCH (10:30)
[2021-06-25] MEDS ORDERED: methaDONE HCL 40 MG DISPERSABLE TABLET ONE (10:56)
[2021-06-25] MEDS ORDERED: methaDONE HCL 10 MG TABLET ONE (10:56)
[2021-06-25 13:24] LABS: BLOOD UREA NITROGEN 5.2 mg/dL (7-18)
[2021-06-25 13:25] LABS: ALBUMIN 2.1 g/dl (3.4-5.0); CALCIUM 8.5 mg/dL (8.5-10.1)
[2021-06-25 13:29] LABS: TOT PROT 5.8 g/dl (6.4-8.2)
[2021-06-25 13:31] LABS: BILIRUBIN,TOTAL 0.3 mg/dL (0.2-1)
[2021-06-25 13:33] LABS: HEMATOCRIT 27.7 % (32.4-45.2); HEMOGLOBIN 8.7 GM/dL (10.7-15.3); MCH 24.4 pg (25.7-33.7); MCHC 31.5 g/dl (32.0-36.0); MEAN CELL VOLUME 77.4 fl (80-96); MEAN PLT VOLUME 8.8 fl (7.5-11.1); PLATELET COUNT 357 10^3/uL (134-434); RBC 3.57 M/mm3 (3.60-5.2); RDW 17.7 % (11.6-15.6); WHITE BLOOD COUNT 4.3 K/mm3 (4.0-10.0)
[2021-06-25] MEDS: diazePAM 5 MG TABLET PO PRN (19:37)
[2021-06-25] MEDS: MELATONIN 5 MG TABLETS PO SCH (22:26)
[2021-06-25] MEDS: THIAMINE HCL 100 MG TABLET (FP) PO SCH (22:26)
[2021-06-26] MEDS ORDERED: methaDONE HCL 40 MG DISPERSABLE TABLET ONE (05:08)
[2021-06-26] MEDS ORDERED: methaDONE HCL 10 MG TABLET ONE (05:08)
[2021-06-26] MEDS: hydrOXYzine PAMOATE 25 MG CAPSULE (FP) PO SCH ×5 (06:27→22:10)
[2021-06-26] MEDS: diazePAM 5 MG TABLET PO SCH ×3 (06:27→22:11)
[2021-06-26] MEDS: FERROUS SO4 325 MG TABLET (FP) PO SCH (07:24)
[2021-06-26] MEDS: PRENATAL VITAMINS W/ FOLIC ACID TABLET (FP) PO SCH (10:40)
[2021-06-26] MEDS: FLUoxetine HCL 20 MG CAPSULE PO SCH (10:45)
[2021-06-26 16:07] LABS: SARS-CoV-2 NAA Not Detected (Not Detected)
[2021-06-26] MEDS: MELATONIN 5 MG TABLETS PO SCH (22:10)
[2021-06-26] MEDS: THIAMINE HCL 100 MG TABLET (FP) PO SCH (22:10)
[2021-06-27] MEDS ORDERED: methaDONE HCL 10 MG TABLET ONE (05:01)
[2021-06-27] MEDS ORDERED: methaDONE HCL 40 MG DISPERSABLE TABLET ONE (05:01)
[2021-06-27] MEDS: hydrOXYzine PAMOATE 25 MG CAPSULE (FP) PO SCH ×5 (06:20→22:14)
[2021-06-27] MEDS: diazePAM 5 MG TABLET PO SCH ×2 (06:20→18:04)
[2021-06-27] MEDS: FERROUS SO4 325 MG TABLET (FP) PO SCH (07:06)
[2021-06-27] MEDS: PRENATAL VITAMINS W/ FOLIC ACID TABLET (FP) PO SCH (10:10)
[2021-06-27] MEDS: FLUoxetine HCL 20 MG CAPSULE PO SCH (10:10)
[2021-06-27] MEDS: diazePAM 5 MG TABLET PO PRN (10:11)
[2021-06-27] MEDS: MELATONIN 5 MG TABLETS PO SCH (22:14)
[2021-06-27] MEDS: THIAMINE HCL 100 MG TABLET (FP) PO SCH (22:14)
[2021-06-28] MEDS ORDERED: methaDONE HCL 40 MG DISPERSABLE TABLET ONE (05:18)
[2021-06-28] MEDS ORDERED: methaDONE HCL 10 MG TABLET ONE (05:18)
[2021-06-28] MEDS ORDERED: diazePAM 5 MG TABLET PO ONE (06:00)
[2021-06-28] MEDS: hydrOXYzine PAMOATE 25 MG CAPSULE (FP) PO SCH (06:09)
[2021-06-28] MEDS: FERROUS SO4 325 MG TABLET (FP) PO SCH (07:28)
[2021-06-28 08:45] VITALS: BP 92/69; PULSE 73; TEMP 96.9
== END 2021-06-28 09:49 | disposition home or self-care (01) | DRG 773 ==
LOC: YASAS 12:08 → Y3N 14:22
PROVIDERS: ADMIT Allergy & Immunology; ATTEND Allergy & Immunology
PROC: HZ2ZZZZ Detoxification Services for Substance Abuse Treatment (ICD-10-PCS; principal; 2021-06-24)
DX: F10.230 Alcohol dependence with withdrawal, uncomplicated (principal); F11.20 Opioid dependence, uncomplicated; F13.20 Sedative, hypnotic or anxiolytic dependence, uncomplicated; F19.24 Other psychoactive substance dependence with psychoactive substance-induced mood disorder; F32.A Depression, unspecified; F41.8 Other specified anxiety disorders; D50.9 Iron deficiency anemia, unspecified; G47.00 Insomnia, unspecified; G40.909 Epilepsy, unspecified, not intractable, without status epilepticus; I10 Essential (primary) hypertension; J45.20 Mild intermittent asthma, uncomplicated; M54.50 Low back pain, unspecified; G89.29 Other chronic pain
CPT/HCPCS: 36415; 80053; 85027; 86780; 87811; C9803-CS; U0003; U0005